=== PATIENT | female | born 1955 | race Caucasian/White ===

== ENCOUNTER 2019-07-26 17:20 | Emergency (ER) | payer MEDICARE, SELFPAY ==
--- NOTE | ~2019-07-26 | XR_ITS ---
EXAMINATION: XR hand RT min 3V EXAM DATE: 07/26/2019 17:43 INDICATION: Initial encounter following injury, with pain of the right hand. TECHNIQUE: Right hand frontal, lateral and oblique projections obtained and reviewed. There is no pr ior study for comparison. FINDINGS: There is acute right fifth metacarpal neck closed posttraumatic fracture. There is overlyin g soft tissue swelling. No other acute findings. IMPRESSION: Right boxer's fracture. Reviewed, dictated and finalized at location A. IMPRESSION: Right boxer's fracture.
[2019-07-26 17:22] VITALS: BP 134/64; PULSE 94; RESP 20; TEMP 36.6; O2SAT 100
--- NOTE | 2019-07-26 18:23 | ED.UPPEXIN ---
HPI - Extremity Injury (Upper) General Chief Complaint: Extremity Injury, Upper Stated Complaint: finger injury Time Seen by Provider: 07/26/19 17:45 Source: patient Mode of arrival: ambulatory Limitations: no limitations History of Present Illness HPI narrative: This is a 64 year old female that presents to the ER for right hand injury sustained just prior to arrival. Reports she tripped and fell forward and caught herself with her hand. Reports pain in the right 5th metacarpal and swelling. Denies hitting her head, loss of consciousness, other injuries, decreased ROM or numbness. Related Data Home Medications Medication Instructions Recorded Confirmed levothyroxine 07/26/19 pravastatin 07/26/19 Allergies Allergy/AdvReac Type Severity Reaction Status Date / Time PROPOXYPHENE HCL Allergy Unknown Uncoded 07/26/19 17:24 Review of Systems Review of Systems: Narrative: CONSTITUTIONAL: Denies fever MUSCULOSKELETAL: Reports joint pain, and myalgia. NEUROLOGIC: Denies numbness All systems reviewed & are unremarkable except as noted in HPI and below PMFSH Past Medical History Medical History (Updated 07/26/19 @ 18:44 by Yelena Soni PA-C) History of hyperlipidemia History of hypothyroidism Social History Social History Gender identity (if verbalized by the patient): Female Exam Narrative: Exam Narrative: GENERAL: Well-appearing, well-nourished, and in no acute distress. HEAD: Normocephalic, atraumatic. EYES: EOMI. EXTREMITIES: Normal range of motion. Mild swelling to the right 5th metacarpal. Normal radial pulses. Normal sensation SKIN: Warm, dry, no rash. NEURO: No focal deficits. Alert and oriented x3. PSYCH: Normal mood and affect Course Consultations Consultation #1: Spoke with Dr. Perez about patient and work-up will follow-up in clinic. Date: 07/26/19 Time: 18:43 Vital Signs Vital signs: Vital Signs Temperature 97.9 F 07/26/19 17: Pulse Rate 94 07/26/19 17:22 Respiratory Rate 20 07/26/19 17:22 Blood Pressure 134/64 07/26/19 17:22 Pulse Oximetry 100 07/26/19 17:22 Temperature 97.9 F 07/26/19 17:22 Pulse Rate 94 07/26/19 17:22 Respiratory Rate 20 05/13/20 17:22 Blood Pressure 134/64 07/26/19 17:22 Pulse Oximetry 100 07/26/19 17:22 Procedures Orthopedic Splinting/Casting Injury #1: Splinting/Casting Date: 07/26/19 Splinting/Casting Time: 18:43 Side: right Upper Extremity Injury Location: hand Upper Extremity Immobilizer: ulnar gutter Splint: customized in ED OCL: ulnar gutter Pre-Procedure Neuro Vascular Exam: normal Post-Procedure Neuro Vascular Exam: normal MDM - Extremity Injury (Upper) MDM Narrative Medical decision making narrative: Patient presents the emergency department for right hand injury today. Right hand x-ray shows a boxer's fracture. Patient placed in an ulnar gutter. Spoke with Dr. Perez about patient and work-up will follow-up in clinic. Patient was given warnings to return to the ER Imaging Data Radiologist's impression: ITS Impressions Hand X-Ray 07/26/19 17:45 IMPRESSION: Right boxer's fracture. Critical Care Time Critical Care Time Critical Care Time: No Discharge Plan Discharge Clinical Impression: Closed fracture of fifth metacarpal bone of right hand Qualifiers: Encounter type: initial encounter Metacarpal location: neck Fracture alignment: nondisplaced Qualified Code(s): S62.366A - Nondisplaced fracture of neck of fifth metacarpal bone, right hand, initial encounter for closed fracture Patient Disposition: Home, Self-Care Condition: Stable Instructions: Boxer Fracture (ED) Additional Instructions: Return to the emergency department if you experience fever, redness and swelling of your arm, numbness, or any other symptoms that are concerning to you Rest. Ice. Pain medication as needed Follow-up with Dr. Perez.
[2019-07-26 19:20] VITALS: BP 146/70; PULSE 78; RESP 20; O2SAT 98
== END 2019-07-26 19:23 | disposition home or self-care (01) ==
PROVIDERS: Emergency Provider Emergency Medicine; PCP Internal Medicine
DX: S62.336A Displaced fracture of neck of fifth metacarpal bone, right hand, initial encounter for closed fracture (principal); E78.5 Hyperlipidemia, unspecified; E03.9 Hypothyroidism, unspecified; W01.0XXA Fall on same level from slipping, tripping and stumbling without subsequent striking against object, initial encounter
CPT/HCPCS: 29125; 73130; 99284; A9270

== ENCOUNTER 2020-12-18 09:51 | Outpatient (CLI) | payer MEDICARE, SELFPAY ==
--- NOTE | ~2020-12-18 | DEXA_ITS ---
Bone Density Report Name: Haritha Ramos Age: 65 Sex: Female Ethnicity: White Date of : 1955 Indication: postmenopausal; parental hip fracture; height loss; prior fracture; Referring Provider: MICHAEL, BRYAN Medrano Study: Bone densitometry was performed. Exam Date: December 18, 2020 Accession number: [id number] Bone Density: Region BMD T-score Z-score Classification AP Spine (L1, L2, L3) 1.030 0.1 2.0 Normal Femoral Neck (Left) 0.765 -0.8 0.9 Normal Total Hip (Left) 0.908 -0.3 1.1 Normal Total Hip Bilateral Avg 0.926 -0.2 1.3 Normal Femoral Neck (Right) 0.843 -0.1 1.6 Normal Total Hip (Right) 0.943 0.0 1.4 Normal World Health Organization criteria for BMD impression classify patients as: Normal (T-score at or above -1.0), Osteopenia (T-score between -1.0 and -2.5), or Osteoporosis (T-score at or below -2.5). 10-year Fracture Risk: FRAX not reported because: All T-scores for Spine Total, Hip Total, Femoral Neck at or above -1.0 Previous Exams: Region Exam Age BMD T-score BMD Change BMD Change Date g/cm2 vs Baseline vs Previous AP Spine(L1, L2, L3) 12/18/2020 65 1.030 0.1 -0.080(-7.2%)# 0.081(8.5%)* 07/26/2018 63 0.949 -0.6 -0.161(-14.5%) -0.088(-8.5%)* 02/20/2014 59 1.036 0.2 -0.074(-6.6%)# 0.005(0.5%)# 01/23/2011 55 1.031 0.1 -0.079(-7.1%)* -0.081(-7.3%)* 09/12/2007 52 1.113 0.9 0.003(0.2%) 0.003(0.2%) 10/08/2003 48 1.110 0.8 Total Hip(Left) 12/18/2020 65 0.908 -0.3 -0.023(-2.5%)# -0.008(-0.9%) 07/26/2018 63 0.916 -0.2 -0.015(-1.6%)# -0.004(-0.5%) 02/20/2014 59 0.920 -0.2 -0.011(-1.1%)# -0.025(-2.7%)# 01/23/2011 55 0.946 0.0 0.015(1.6%) 0.001(0.1%) 09/12/2007 52 0.945 0.0 0.014(1.5%) 0.014(1.5%) 10/08/2003 48 0.931 -0.1 Total Hip(Right) 12/18/2020 65 0.943 0.0 -0.002(-0.2%)# -0.017(-1.8%) 07/26/2018 63 0.960 0.1 0.015(1.6%)# 0.018(1.9%) 02/20/2014 59 0.942 0.0 -0.003(-0.3%)# 0.006(0.7%)# 01/23/2011 55 0.935 -0.1 -0.009(-1.0%) -0.017(-1.8%) 09/12/2007 52 0.953 0.1 0.008(0.9%) 0.008(0.9%) 10/08/2003 48 0.944 0.0 *Denotes significance at 95% confidence level, LSC for AP Spine = 0.022 g/cm2, LSC for Total Hip = 0.027 g/cm2 Clinical Information Provided by Patient: Has had a low trauma fracture Parent has had a hip fracture Has used the following medications: Vitamin D, Calcium Patient maximum height was 64 Menopause Age: 54 Drinks caffe
== END 2020-12-18 09:52 | disposition home or self-care (01) ==
PROVIDERS: PCP Internal Medicine; Visit Provider Internal Medicine
DX: M81.0 Age-related osteoporosis without current pathological fracture (principal)
CPT/HCPCS: 77080

== ENCOUNTER 2021-01-01 08:40 | Outpatient (CLI) | payer MEDICARE, SELFPAY ==
--- NOTE | ~2021-01-01 | MM_ITS ---
EXAMINATION: MM screening [facility] BI w cora HISTORY: Screening mammogram TECHNIQUE: Craniocaudal and mediolateral oblique 3-D tomosynthesis images were obtained and synthetic 2-D images were generated. CAD analysis was submitted and interpreted. COMPARISON: 08/18/2018 diagnostic left mammogram 07/26/2018, 07/14/2017, 03/04/2016 bilateral digital screening mammogram examinations BREAST PARENCHYMAL COMPOSITION: The breasts are almost entirely fatty. FINDINGS: There is no evidence of suspicious mass, calcification, or architectural distortion to sugg est malignancy in either breast. There has been no suspicious interval change. IMPRESSION: 1. No mammographic evidence of malignancy. 2. Recommend routine screening mammography in one year. BI-RADS Category 1: Negative Reviewed, dictated and finalized at location A.
== END 2021-01-01 08:41 | disposition home or self-care (01) ==
LOC: ANHIMG 08:41
PROVIDERS: PCP Internal Medicine; Visit Provider Internal Medicine
DX: Z12.31 Encounter for screening mammogram for malignant neoplasm of breast (principal)
CPT/HCPCS: 77063; 77067

== ENCOUNTER 2022-02-10 08:40 | Outpatient (CLI) | payer MEDICARE, SELFPAY ==
--- NOTE | ~2022-02-10 | MM_ITS ---
EXAMINATION: MM screening [facility] BI w cora HISTORY: Screening mammogram TECHNIQUE: Craniocaudal and mediolateral oblique 3-D tomosynthesis images were obtained and synthetic 2-D images were generated. CAD analysis was submitted and interpreted. COMPARISON: 01/01/2021, 08/18/2018, 07/26/2018 BREAST PARENCHYMAL COMPOSITION: The breasts are almost entirely fatty. FINDINGS: No suspicious mass, calcification, or architectural distortion are identified in either haven ast to suggest malignancy. There has been no suspicious interval change. IMPRESSION: 1. No mammographic evidence of malignancy. 2. Recommend routine screening mammography in one year. BI-RADS Category 1: Negative Reviewed, dictated and finalized at location A. EACH NURSE
== END 2022-02-10 08:41 | disposition home or self-care (01) ==
LOC: ANHIMG 08:41
PROVIDERS: PCP Internal Medicine; Visit Provider Internal Medicine
DX: Z12.31 Encounter for screening mammogram for malignant neoplasm of breast (principal)
CPT/HCPCS: 77063; 77067

== ENCOUNTER 2022-07-13 12:22 | Outpatient (CLI) | payer MEDICARE, SELFPAY ==
--- NOTE | ~2022-07-13 | XR_ITS ---
EXAM: XR hand LT min 3V DATE: 07/13/2022 12:47 HISTORY: CLOSED FRACTURE OF 5TH DIGIT, INJURY X4 DAYS AGO . COMPARISON: None available. FINDINGS: Normal mineralization. Comminuted fracture of the shaft of the left fifth proximal phalang e, with minimal medial angulation and 20 degrees posterior angulation. No lytic or blastic lesion. Mi ld scattered degenerative changes. No erosion or periosteal change. Soft tissues within normal limits . IMPRESSION: Comminuted, angulated diaphyseal fracture of the left fifth proximal phalange. Reviewed, dictated and finalized at location K. IMPRESSION: Comminuted, angulated diaphyseal fracture of the left fifth proxima l phalange.
== END 2022-07-13 12:23 | disposition home or self-care (01) ==
LOC: ANHIMG 12:32
PROVIDERS: PCP Internal Medicine; Visit Provider Plastic Surgery
DX: S62.607A Fracture of unspecified phalanx of left little finger, initial encounter for closed fracture (principal); X58.XXXA Exposure to other specified factors, initial encounter
CPT/HCPCS: 73130

== ENCOUNTER 2022-07-21 13:57 | Outpatient (CLI) | payer MEDICARE, SELFPAY ==
--- NOTE | ~2022-07-21 | XR_ITS ---
EXAM: XR hand LT min 3V DATE: 07/21/2022 14:15 HISTORY: FX OF L 5TH DIGIT, F/U . COMPARISON: None available. FINDINGS: Normal mineralization. Subacute comminuted fractures of the mid left fifth proximal phalan ge, slightly decreased posterior angulation, otherwise unchanged alignment given interval changes in positioning and technique. Hyperemia along the fracture lines. No callus noted. No new acute fracture or dislocation. No lytic or blastic lesion. Joint spaces are maintained. No erosion or periosteal ch robina. Soft tissues within normal limits. IMPRESSION: Early healing changes noted in the left fifth proximal phalange fracture. Reviewed, dictated and finalized at location K. IMPRESSION: Early healing changes noted in the left fifth proximal phalange fra cture.
== END 2022-07-21 13:58 | disposition home or self-care (01) ==
PROVIDERS: PCP Internal Medicine; Visit Provider Plastic Surgery
DX: S62.607A Fracture of unspecified phalanx of left little finger, initial encounter for closed fracture (principal); X58.XXXA Exposure to other specified factors, initial encounter
CPT/HCPCS: 73130

== ENCOUNTER 2023-06-28 14:51 | Outpatient (CLI) | payer MEDICARE, SELFPAY ==
--- NOTE | ~2023-06-28 | MM_ITS ---
EXAMINATION: MM screening [facility] BI w cora HISTORY: Screening TECHNIQUE: Craniocaudal and mediolateral oblique 3-D tomosynthesis images were obtained and synthetic 2-D images were generated. CAD analysis was submitted and interpreted. COMPARISON: Comparison to multiple prior studies sequentially, with oldest reviewed study dated 12/14. BREAST PARENCHYMAL COMPOSITION: Not Dense: Breast are almost entirely fatty. FINDINGS: There is no evidence of suspicious mass, calcification, or architectural distortion to sugg est malignancy in either breast. There has been no suspicious interval change. IMPRESSION: 1. No mammographic evidence of malignancy. 2. Recommend routine screening mammography in one year. BI-RADS Category 1: Negative Reviewed, dictated and finalized at location B.
== END 2023-06-28 14:52 | disposition home or self-care (01) ==
LOC: ANHIMG 14:54
PROVIDERS: PCP Internal Medicine; Visit Provider Internal Medicine
DX: Z12.31 Encounter for screening mammogram for malignant neoplasm of breast (principal)
CPT/HCPCS: 77063; 77067

== ENCOUNTER 2024-05-24 13:49 | Outpatient (CLI) | payer MEDICARE, SELFPAY ==
--- NOTE | ~2024-05-24 | DEXA_ITS ---
Bone Density Report Name: ANGELIA ROSS Age: 69 Sex: Female Ethnicity: White Date of : 1955 Indication: postmenopausal; screening for osteoporosis; parental hip fracture; height loss; prior fracture; Referring Provider: LEA*, BRYAN Medrano Study: Bone densitometry was performed. Exam Date: May 24, 2024 Accession number: [id number] Bone Density: Region BMD T-score Z-score Classification AP Spine(L1-L4) 1.076 0.3 2.4 Normal Femoral Neck (Left) 0.886 0.3 2.2 Normal Total Hip (Left) 0.971 0.2 1.8 Normal Femoral Neck (Right) 0.823 -0.2 1.6 Normal Total Hip (Right) 0.960 0.1 1.7 Normal Total Hip Mean 0.966 0.2 1.8 Normal World Health Organization criteria for BMD impression classify patients as: Normal (T-score at or above -1.0), Osteopenia (T-score between -1.0 and -2.5), or Osteoporosis (T-score at or below -2.5). 10-year Fracture Risk: FRAX not reported because: All T-scores for Spine Total, Hip Total, Femoral Neck at or above -1.0 Previous Exams: Region Exam Age BMD T-score BMD Change BMD Change Date g/cm2 vs Baseline vs Previous Total Hip(Left) 05/24/2024 69 0.971 0.2 0.055 (6.0%)* 0.063 (7.0%)* 12/18/2020 65 0.908 -0.3 -0.008 (-0.9%) -0.008 (-0.9%) 07/26/2018 63 0.916 -0.2 Total Hip(Right) 05/24/2024 69 0.960 0.1 0.000 (0.0%) 0.017 (1.9%) 12/18/2020 65 0.943 0.0 -0.017 (-1.8%) -0.017 (-1.8%) 07/26/2018 63 0.960 0.1 *Denotes significance at 95% confidence level, LSC for Total Hip = 0.027 g/cm2 Clinical Information Provided by Patient: Has had a low trauma fracture Parent has had a hip fracture Has used the following medications: Vitamin D, Calcium Patient maximum height was 64 Menopause Age: 54 No regular weight bearing exercise Does not regularly consume dairy products Drinks caffeinated beverages Onset of menses at age 11 Number of children 0 Impression: The patient has normal bone mass. The patient has risk factors, including: parental hip fracture, previous fracture. No significant bone loss was observed. Discussion: BONE DENSITY IS ABOVE THE MINIMUM DESIRABLE LEVEL AT ALL SKELETAL SITES TESTED. This patient?s bone mineral density is above the minimum desirable level (T-score -1.0 or better) at all sites measured. The patient should follow a healthful lifestyle (good nutrition with adequate calcium and vitamin D, and appropriate weight-bearing exercise). Follow-Up: Consider repeating this study in 5 years or sooner if there is some new clinical indication. Reported by: JOHN on 05/24/2024 2:26:00 PM. Reviewed, dictated and finalized at location ARosaura [facility]ENTER[facility]ie
--- OUTSIDE RECORDS SUMMARY | 2024-05-24 15:38 | XMS_ITS | Clinical Summary ---
Author Organization [facility] Address [address] [facility], [place] [address] Phone Care Team Providers Care Well Servicing Rig Operator Name Role Phone Santos Thurman MD Primary Care Provider [phone] Maria T Michel APRN, CALL CENTER REPRESENTATIVE Unavailable Allergies No known active allergies Medications LEVOTHYROXINE SODIUM PO Take 100 mcg by mouth. Active pravastatin (PRAVACHOL) 40 MG Tablet Take 40 mg by mouth daily. Active Multiple Vitamin (MULTI-VITAMIN PO) Take by mouth. Activ e Calcium Carb-Cholecalci ferol (CALCIUM + D3) 600-200 MG-UNIT Tablet Take by mouth. Active Cholecalciferol (VITAMIN D3) 2000 UNIT Capsule Take by mouth. Activ e [place]-3 Fatty Acids (OMEGA 3 PO) Take 500 mg by mouth. Active BIOTIN FORTE PO Take 5,000 mg by mouth. Active Cranberry-Vitam in C-Vitamin E 4200-20-3 MG-MG-UNIT Capsule Take by mouth. Activ e albuterol (ProAir HFA) 108 (90 Base) MCG/ACT Aerosol Solution take 2 Puffs by inhalation every 4 hours as needed for Wheezing. 1 Inhaler 5 0 Active Additional Information Patient not taking.Reported on 10/27/2023 rosuvastatin (CRESTOR) 5 MG Tablet Take 5 mg by mouth daily. Unknown dosage Active Active Problems Problem Noted Date Diagnosed Date Non morbid obesity 12/27/2017 CHUCK on CPAP 11/21/2015 Acquired hypothyroidism 11/21/2015 Immunizations Immunization Administration Dates Next Due Covid-19, Mrna, Lnp-s, PF, 1 00 mcg/0.5 mL Dose (Moderna) 05/21/2020,04/23/2020 Pneumococcal Vaccine - 13 Valent 06/10/2018 Pneumococcal Vaccine Adult - 23 Valent 0 Family History Medical History Relation Name Comments Congestive Heart Failure Father Diabetes Father No Known Problems Maternal Grandfather No Known Problems Maternal Grandmother Osteoporosis Mother No Known Problems Paternal Grandfather No Known Problems Paternal Grandmother Diabetes Sister Relation Name Status Comments Father Maternal Grandfather Maternal Grandmother Mother Alive Paternal Grandfather Paternal Grandmother Sister Alive Social History Tobacco Use Types Packs/Day Years Used Date Smoking Tobacco: Never Smokeless Tobacco: Never Tobacco Cessation:Counseling Given: Not Answered Alcohol Use Standard Drinks/Week Comments No 0 (1 standard drink = 0.6 oz pur e alcohol) Sexually Active Control Partners Comments Not Currently Comments No Sex and Gender Information Value Date Recorded Sex Assigned at Not on file Legal Sex Female 1:19 PM CDT Gender Identity Not on file Sexual Orientation Not on file Last Filed Vital Signs Vital Sign Reading Time Taken Comments Blood Pressure 130/64 10/27/2023 11:23 AM CDT Pulse 79 10/27/2023 11:23 AM CDT Temperature 36 C (96.8 F) 10/27/2023 11:23 AM CDT Respiratory Rate 16 10/27/2023 11:23 AM CDT Oxygen Saturation 96% 10/27/2023 11:23 AM CDT Inhaled Oxygen Concentration - - Weight 90.7 kg (200 lb) 10/27/2023 11:23 AM CDT Height 160 cm (5' 3 ) 10/27/2023 11:23 AM CDT Body Mass Index 35.43 10/27/2023 11:23 AM CDT Plan of Treatment Upcoming Encounters Date Type Department Care Team (Late st Contact Info) Description 10/25/2024 10:00 AM CDT Office Visit [facility] [place] [address] [facility] [address] [place] [address] Maria T Michel, WAITER WAITRESS, CALL CENTER REPRESENTATIVE [address] [facility] [address] [place] [address] Health Maintenance Due Date Last Done Comments DEXA Bone Density 1955 Hepatitis C Virus (HCV) Screening 1955 Mammogram 1955 TdaP Immunization 1955 Colonoscopy 1998 Colorectal Cancer Screening 1998 Cologuard 2003 Immunochemical Fecal Occult Blood 2003 Zoster Immunization (1 of 2) 2003 Respiratory Syncytial Virus (RSV) Immunization (Adult) (1 - Risk 60-74 years 1-dose series) 2013 Influenza Immunization (#1) 2023 11/0 09/2022, 12/19/2021, 12/20/2020 SARS-COV-2 Immunization (2023- season) 2023 01/21/2023, 03/03/2022, 09/16/2021, Additional history exists Pneumococcal Immunization (50+ years) Completed 10/27/2019, 06/10/2018 Pneumococcal Immunization Combined Discontinued 10/27/2019, 06/10/2018 Hepatitis B Immunization Aged Out No longer eligible based on patient's age to complete this topic Meningococcal Immunization (ACWY) Aged Out No longer eligible based on patient's age to complete this topic Rotavirus Immunization Aged Out No lo nger eligible based on patient's age to complete this topic Insurance MEDICARE C AETNA Care Teams Well Servicing Rig Operator Relationship Specialty Start Date End Date Santos Thurman MD [address] [facility] [address] [place] [address] PCP - General Internal Medicine 08/16/15 Maria T Michel APRN, CALL CENTER REPRESENTATIVE #[address] [address] Nurse Practitioner Advanced Practice Nurse 08/26/22
--- OUTSIDE RECORDS SUMMARY | 2024-05-24 15:38 | XMS_ITS | Continuity of Care Document ---
Author Organization [facility] Address [address] [place] [address] Phone Care Team Providers Care Line Runner Name Role Phone [facility] Unavailable [...] Diagnoses Date Provider Providers Copied on Encounter [facility], [address] [place] [address] [address], [place], [place], [id number], [place] tel:[phone] SEC [facility] No Information 0 [facility] . [address] [facility], [facility] [address], [place], [address], [place]. tel:[phone] Referring Provider: Simone Webster, [address] [place] [address] [address], [place], [address]. tel:[phone] sulting Provider: Marco Finney, [address] [place] [address], [place], [address]. tel:[phone] [facility], [address], [place], [place], [address], [place] tel:[phone] SEC [facility] No Information Dec-2 9-200 9 [place] OD Simone. [address] [facility] , [address], [place], [address], [place]. tel:[phone] [facility], [address], [place], [place], [id number], tel:[phone] SEC [facility] No Information Dec-2 4-200 8 [place] OD Simone. [address] [facility] , [address], [place], [place], [facility], [place]. tel:[phone] [facility], [address], [place], [place], [address], tel:[phone] SEC [facility] No Information Feb-1 9-200 7 [place] OD Simone. [facility] [facility] , [address], [place], [address], [place]. tel:[phone] Family History Family Member Type Diagnosis Age At Onset No Information Payers Payer name Insurance type Covered libertarian ID Authoriza tion(s) No Information Social History [...]
== END 2024-05-24 13:50 | disposition home or self-care (01) ==
LOC: ANHIMG 13:53
PROVIDERS: PCP Internal Medicine; Visit Provider Internal Medicine
DX: M81.0 Age-related osteoporosis without current pathological fracture (principal)
CPT/HCPCS: 77080

== ENCOUNTER 2024-06-02 15:37 | Outpatient (CLI) | payer MEDICARE, SELFPAY ==
--- NOTE | ~2024-06-02 | XR_ITS ---
HISTORY: Pain in thoracic spine COMPARISON: None TECHNIQUE: 3 views of the thoracic spine were performed FINDINGS: No acute compression fracture is present. Bone mineralization is age-appropriate. No significant degenerative disease. IMPRESSION: Unremarkable radiographic evaluation of the thoracic spine, as detailed above. Reviewed, dictated and finalized at location A. IMPRESSION: Unremarkable radiographic evaluation of the thoracic spine, as det moncho above.
--- OUTSIDE RECORDS SUMMARY | 2024-06-02 15:42 | XMS_ITS | Clinical Summary ---
Author Organization [facility] Address [address] [facility] [place] [address] Phone Care Team Providers Care Electrician Crane Maintenance Name Role Phone Santos Thurman MD Primary Care Provider [phone] Maria T Michel APRN, CHIEF MEDICAL PHYSICIST Unavailable Allergies No known active allergies Medications LEVOTHYROXINE SODIUM PO Take 100 mcg by mouth. Active pravastatin (PRAVACHOL) 40 MG Tablet Take 40 mg by mouth daily. Active Multiple Vitamin (MULTI-VITAMIN PO) Take by mouth. Activ e Calcium Carb-Cholecalci ferol (CALCIUM + D3) 600-200 MG-UNIT Tablet Take by mouth. Active Cholecalciferol (VITAMIN D3) 2000 UNIT Capsule Take by mouth. Activ e [place]-3 Fatty Acids (OMEGA 3 PO) Take 500 [...] Visit [facility] - [place] [address] [facility] [address] [place] [address] Maria T Michel, CABLE TESTERS HELPER, CHIEF MEDICAL PHYSICIST [address] [facility] [address] [place] [address] Health Maintenance Due Date Last Done Comments [...] topic Insurance MEDICARE C [employer] Care Teams Electrician Crane Maintenance Relationship Specialty Start Date End Date Santos Thurman MD [address] [facility] [address] [place] [id number] PCP - General Internal Medicine 08/16/15 Maria T Michel APRN, CHIEF MEDICAL PHYSICIST [address] [address] Nurse Practitioner Advanced Practice Nurse 08/26/22
--- OUTSIDE RECORDS SUMMARY | 2024-06-02 15:42 | XMS_ITS | Data Portability ---
Author Organization [facility] [employer], Main Office Address [address] [place] [address] Assessment No assessment recorded. Plan of Treatment Reminders Order Date Submit Date Provider Last Modified By Organization Details Last Modified Time Details Appointments None recorded. Lab vitamin D, 25-hydrox y, total, serum 025 [facility], [address] [place], [address], 5 04:15:41 lipid panel, serum 025 [facility], [address] [place], [address], 5 04:15:40 CMP, serum or plasma 025 [facility], [address] [place], [address], 5 04:15:40 TSH, serum or plasma 025 [facility], [address] [place], [address], 5 04:15:40 T4, free, serum 025 [facility], [address] [place], [address], 5 04:15:40 CBC w/ auto diff 025 [facility], [address] [place], [address], 5 04:15:41 lipid panel, serum 024 [facility], [address] [place], [address], 4 19:22:15 CMP, serum or plasma 024 [facility], [address] [place], [address], 4 19:22:15 TSH, serum or plasma 024 [facility], [address] [place], [address], 4 19:22:17 T4, free, serum 024 [facility], [address] [place], [address], 4 19:22:17 CBC w/ auto diff 024 [facility], [address] [place], [address], 4 19:22:16 vitamin D, 25-hydrox y, total, serum 024 [facility], [address] [place], [address], 4 08:23:44 lipid panel, serum 024 [facility], [address] [place], [address], 4 08:23:39 CMP, serum or plasma 024 [facility], [address] [place], [address], 4 08:23:40 TSH, serum or plasma 024 024 [facility], [address] [place], [address], 4 08:23:43 T4, free, serum 024 024 [facility], [address] [place], [address], 4 08:23:42 CBC w/ auto diff 024 024 [facility], [address] [place], [address], 4 08:23:41 lipid panel, serum 023 023 [email or web address] [facility], [address] [place], [address], 3 09:56:39 CMP, serum or plasma 023 023 [id number] [facility], [address] [place], [address], 3 09:56:39 TSH, serum or plasma 023 023 [facility], [address] [place], [address], 3 09:56:38 T4, free, serum 023 023 [email or web address] [facility], [address] [place], [address], 3 09:56:39 vitamin D, 25-hydrox y, total, serum 023 023 [email or web address] [facility], [address] [place], [address], 3 11:05:29 lipid panel, serum 023 023 [id number] [facility], [address] [place], [address], 3 11:05:28 CMP, serum or plasma 023 023 [email or web address] [facility], [address] [place] [address], [address], 3 11:05:29 CBC 023 023 [email or web address] [facility], [address] [place], [address], 3 11:05:29 TSH, serum or plasma 023 023 [email or web address] [facility], [address] [place] [address], [address], 3 11:05:29 T4, free, serum 023 023 [facility], [address] [place] [address], [address], 3 11:05:29 Referral None recorded. Procedures None recorded. Surgeries None recorded. Imaging None recorded. Medication Orders None recorded. Patient TargetsNo targets recorded. Patient Instructions Encounter Date Encounter Id Patient Instructions Last Modified By Organization Details Last Modified Time 05/22/2022 [id number] Follow-up hyperlipidemia-hypo thyroidism - sleep apnea -obesity clinically stable. Will check blood work in the form of CBC, CMP, lipid, thyroid and vitamin-D level. Continue on current Rx follow-up in six months [email or web address] Not available 05/22/2022 10:54:44 11/20/2022 [id number] Follow-up hyperlipidemia-hypo thyroidism -sleep apnea -obesity class two. Clinically stable. Most recent blood work performed in May showed a cholesterol 166 HDL of 53 LDL of 92. Thyroid, blood sugar and liver enzymes all within normal limits. Overall is doing well. Will continue on current Rx check a lipid and thyroid and CMP panel. Continue on current Rx follow-up in six months. Portions of the record may have been created with voice recognition software. Occasional wrong-word or elfto-g-sjja substitutions may have occurred due to the inherent limitations of voice recognition software. Read the chart carefully and recognize, using context, where substitutions have occurred. Next Appt: 6 Months Approximate Date: 05/19/2023 [email or web address] Not available 11/20/2022 11:22:58 05/21/2023 [id number] Follow-up hyperlipidemia, hypothyroidism, sleep apnea and obesity all clinically stable. Will continue on current Rx check blood work consisting of CBC, CMP, lipid, thyroid and vitamin-D level. Continue on current Rx will be due for a colonoscopy or Cologuard test later in the year. FDA recommendations of a influenza, RSV, COVID, pneumococcal immunizations strongly advised. Portions of the record may have been created with voice recognition software. Occasional wrong-word or uupcj-c-slnu substitutions may have occurred due to the inherent limitations of voice recognition software. Read the chart carefully and recognize, using context, where substitutions have occurred. [email or web address] Not available 05/21/2023 11:46:34 11/25/2023 [id number] Follow up cholesterol, hypothyroidism, sleep apnea and obesity all clinically stable. Check blood work and follow up in six months. Additional Orders - Directives - Recommendations 1. DEXA Scan Keep Appointment: Jossie 05 25 2024 09:40 AM Amanda Portions of the record may have been created with voice recognition software. Occasional wrong-word or ujgdy-c-lsqz substitutions may have occurred due to the inherent limitations of voice recognition software. Read the chart carefully and recognize, using context, where substitutions have occurred. [email or web address] Not available 11/25/2023 14:19:08 05/25/2024 [id number] Follow-up hyperlipidemia, hypothyroidism, sleep apnea, thoracic back pain and obesity. Check blood work consisting of CBC, CMP, lipid, thyroid, vitamin-D level. Will get radiographic studies of the thoracic spine. Treat the back pain symptomatically with heat ice and anti-inflammatories . No improvement may need an MRI or further evaluation. Follow-up six months Additional Orders - Directives - Recommendations 1. x-ray thoracic spine for thoracic back pain Follow Up: 6 Months Approximate Date: 11/21/2024 Portions of record are template driven. When necessary additional context will be provided. Additionally some portions have been created with voice recognition software. Occasional wrong-word or [id number]-j-[id number] substitutions may have occurred due to the inherent limitations of voice recognition software. Read the chart carefully and recognize, using context, where substitutions may have occurred. Created: Santos Thurman M.D. 05.25.2024 10:13 AM [email or web address] Not available 05/25/2024 11:13:57 Reason for Referral None Reported. Results Created Date Observation Date Name Description Value Unit Range Abnormal Flag Note LastModifiedBy Organization Detail LastModifiedTime 06/10/1906/10/2022 LIPID PANEL , STAND CHASIDY cholesterol, total 166 mg/dL <200 normal Not Available [address], [address], 06/10/2022 07:29:55 06/10/1906/10/2022 LIPID PANEL , STAND CHASIDY HDL cholesterol 53 mg/dL > or = 50 normal Not Available [address], [address], 06/10/2022 07:29:55 06/10/1906/10/2022 LIPID PANEL , STAND CHASIDY triglyceride s 110 mg/dL <150 normal Not Available [address], [address], 06/10/2022 07:29:55 06/10/1906/10/2022 LIPID PANEL , STAND CHASIDY LDL-choleste rol 92 mg/dL _(tru c) normal Refer ence range : <100 Ashely able range <100 mg/dL for prima ry preve ntion ; <70 mg/dL for patie nts with CHD or diabe tic patie nts with > or = 2 CHD risk facto rs. LDL-C is now calcu lated using the Paola n-Hop kins shilpiu jaron n, which is a valid ated novel maryjaneo d flaco matson accur acy than the Fried malou equat ion in the estim ation of LDL-C . Paola alvarado SS et al. JACLYN. 2013; 310(1 9): 2061- 2068 (http ://ed ucati on.Qu estDi agnos Son[employer]. com/f aq/FA Q164) Not Available [address], [address], 06/10/2022 07:29:55 06/10/19 23 06/10/2022 LIPID PANEL , STAND CHASIDY chol/HDLC ratio 3.1 (calc ) <5.0 normal Not Available [address], [address], 06/10/2022 07:29:55 06/10/19 23 06/10/2022 LIPID PANEL , STAND CHASIDY non HDL cholesterol 113 mg/dL _(tru c) <130 normal For patie nts with diabe eddie plus 1 major ASCVD risk facto r, treat ing to a non-H DL-C goal of <100 mg/dL (LDL- C of <70 mg/dL ) is consi baldemard a marvina samantha c optio n. Not Available [address], [place], [address], 06/10/2022 07:29:55 06/10/19 23 06/10/2022 COMPR EHENS RICKY METAB OLIC PANEL glucose 85 mg/dL 65-99 normal Fasti ng refer ence inter janine Not Available [address], [address], 06/10/2022 07:29:56 06/10/19 23 06/10/2022 COMPR EHENS RICKY METAB OLIC PANEL urea nitrogen (BUN) 13 mg/dL 7-25 normal Not Available [address], [address], 06/10/2022 07:29:56 06/10/19 23 06/10/2022 COMPR EHENS RICKY METAB OLIC PANEL creatinine 1.02 mg/dL 0.50-1 .05 normal Not Available [address], [address], 06/10/2022 07:29:56 06/10/19 23 06/10/2022 COMPR EHENS RICKY METAB OLIC PANEL eGFR 60 mL/mi n/1.7 3m2 > or = 60 normal The eGFR is based on the CKD-E PI 2020 equat ion. To calcu late the new eGFR from a previ ous Creat inine or Cysta tin C resul t, go to https ://shannon lopez.norma jackson/maik soaresal s/ kdoqi /gfr% 5Fcal culat or Not Available [address] [address] [place], [address], 06/10/2022 07:29:56 06/10/19 23 06/10/2022 COMPR EHENS RICKY METAB OLIC PANEL BUN/creatini ne ratio NOT APPLIC ABLE (calc ) 6-22 Not Available [address], [address], 06/10/2022 07:29:56 06/10/19 23 06/10/2022 COMPR EHENS RICKY METAB OLIC PANEL sodium 135 mmol/ L 135-14 6 normal Not Available [address], [address], 06/10/2022 07:29:56 06/10/19 23 06/10/2022 COMPR EHENS RICKY METAB OLIC PANEL potassium 4.1 mmol/ L 3.5-5. 3 normal Not Available [address], [address], 06/10/2022 07:29:56 06/10/19 23 06/10/2022 COMPR EHENS RICKY METAB OLIC PANEL chloride 100 mmol/ L 98-110 normal Not Available [address], [address], 06/10/2022 07:29:56 06/10/19 23 06/10/2022 COMPR EHENS RICKY METAB OLIC PANEL carbon dioxide 26 mmol/ L 20-32 normal Not Available [address], [address], 06/10/2022 07:29:56 06/10/19 23 06/10/2022 COMPR EHENS RICKY METAB OLIC PANEL calcium 9.9 mg/dL 8.6-10 .4 normal Not Available [address], [address], 06/10/2022 07:29:56 06/10/19 23 06/10/2022 COMPR EHENS RICKY METAB OLIC PANEL protein, total 7.6 g/dL 6.1-8. 1 normal Not Available [address], [address], 06/10/2022 07:29:56 06/10/19 23 06/10/2022 COMPR EHENS RICKY METAB OLIC PANEL albumin 4.3 g/dL 3.6-5. 1 normal Not Available [address], [address], 06/10/2022 07:29:56 06/10/19 23 06/10/2022 COMPR EHENS RICKY METAB OLIC PANEL globulin 3.3 g/dL_ (calc ) 1.9-3. 7 normal Not Available [address], [address], 06/10/2022 07:29:56 06/10/19 23 06/10/2022 COMPR EHENS RICKY METAB OLIC PANEL albumin/glob ulin ratio 1.3 (calc ) 1.0-2. 5 normal Not Available [address], [address], 06/10/2022 07:29:56 06/10/19 23 06/10/2022 COMPR EHENS RICKY METAB OLIC PANEL bilirubin, total 0.7 mg/dL 0.2-1. 2 normal Not Available [address], [address], 06/10/2022 07:29:56 06/10/19 23 06/10/2022 COMPR EHENS RICKY METAB OLIC PANEL alkaline phosphatase 93 U/L 37-153 normal Not Available [address], [address], 06/10/2022 07:29:56 06/10/19 23 06/10/2022 COMPR EHENS RICKY METAB OLIC PANEL AST 25 U/L 10-35 normal Not Available [address], [address], 06/10/2022 07:29:56 06/10/19 23 06/10/2022 COMPR EHENS RICKY METAB OLIC PANEL ALT 15 U/L 6-29 normal Not Available [address], [address], 06/10/2022 07:29:56 06/10/19 23 06/10/2022 CBC (H/H, RBC, INDIC ES, WBC, PLT) white blood cell count 7.3 thous and/u L 3.8-10 .8 normal Not Available [address], [address], 06/10/2022 07:29:56 06/10/19 23 06/10/2022 CBC (H/H, RBC, INDIC ES, WBC, PLT) red blood cell count 4.89 lou on/uL 3.80-5 .10 normal Not Available [address], [address], 06/10/2022 07:29:56 06/10/1906/10/2022 CBC (H/H, RBC, INDIC ES, WBC, PLT) hemoglobin 14.1 g/dL 11.7-1 5.5 normal Not Available [address], [address], 06/10/2022 07:29:56 06/10/19 23 06/10/2022 CBC (H/H, RBC, INDIC ES, WBC, PLT) hematocrit 43.5 % 35.0-4 5.0 normal Not Available [address], [address], 06/10/2022 07:29:56 06/10/19 23 06/10/2022 CBC (H/H, RBC, INDIC ES, WBC, PLT) MCV 89.0 fL 80.0-1 00.0 normal Not Available [address], [address], 06/10/2022 07:29:56 06/10/1906/10/2022 CBC (H/H, RBC, INDIC ES, WBC, PLT) MCH 28.8 pg 27.0-3 3.0 normal Not Available [address], [address], 06/10/2022 07:29:56 06/10/1906/10/2022 CBC (H/H, RBC, INDIC ES, WBC, PLT) MCHC 32.4 g/dL 32.0-3 6.0 normal Not Available [address], [address], 06/10/2022 07:29:56 06/10/19 23 06/10/2022 CBC (H/H, RBC, INDIC ES, WBC, PLT) RDW 12.4 % 11.0-1 5.0 normal Not Available [address], [address], 06/10/2022 07:29:56 06/10/1906/10/2022 CBC (H/H, RBC, INDIC ES, WBC, PLT) platelet count 251 thous and/u L 140-40 0 normal Not Available [address], [address], 06/10/2022 07:29:56 06/10/19 23 06/10/2022 CBC (H/H, RBC, INDIC ES, WBC, PLT) MPV 13.0 fL 7.5-12 .5 high Not Available [address], [address], 06/10/2022 07:29:56 06/10/1906/10/2022 T4, FREE T4, free 1.5 NG/dL 0.8-1. 8 normal Not Available [address], [address], 06/10/2022 07:29:57 06/10/1906/10/2022 TSH TSH 0.30 mIU/L 0.40-4 .50 low Not Available [address], [address], 06/10/2022 07:29:58 06/10/1906/10/2022 VITAM IN D,25- OH,TO YOU,I A vitamin D,25-oh,tota l,ia 51 NG/mL 30-100 normal Vitam in D Statu s 25-OH Vitam in D: Defic iency : <20 ng/mL Insuf ficie ncy: 20 - 29 ng/mL Optim al: > or = 30 ng/mL For 25-OH Vitam in D testi ng on patie nts on D2-solano pplem entat ion and patie nts for whom quant itati on of D2 and D3 fract ions is requi red, the [facility] eD(TM ) 25-OH VIT D, (D2,D 3), LC/MS /MS is recom jaret d: order code 19849 (alex ents >2yrs ). See Note 1 Note 1 For addit ional infor carly coppola refer to http: //angus Herron stDia gnost ics.c om/fa q/FAQ 199 (This link is being provi ded for infor benja king/ hannah loredo purpo ses only. ) Not Available [address] [place], [address], 06/10/2022 07:29:58 12/24/1912/24/2022 LIPID PANEL , STAND CHASIDY cholesterol, total 208 mg/dL <200 high Not Available [address] [address] [place], [address], 12/24/2022 02:06:34 12/24/1912/24/2022 LIPID PANEL , STAND CHASIDY HDL cholesterol 62 mg/dL > or = 50 normal Not Available [facility] [address] [address] [place], [address], 12/24/2022 02:06:34 12/24/1912/24/2022 LIPID PANEL , STAND CHASIDY triglyceride s 107 mg/dL <150 normal Not Available [address], [address], 12/24/2022 02:06:34 12/24/1912/24/2022 LIPID PANEL , STAND CHASIDY LDL-choleste rol 125 mg/dL _(tru c) high Refer ence range : <100 Ashely able range <100 mg/dL for prima ry preve ntion ; <70 mg/dL for patie nts with CHD or diabe tic patie nts with > or = 2 CHD risk facto rs. LDL-C is now calcu lated using the Paola alvarado-Hop kins shilpiu jaron n, which is a valid ated novel maryjaneo jarvis matson accur acy than the Fried malou equat ion in the estim ation of LDL-C . Paola alvarado SS et al. JACLYN. 2013; 310(1 9): 2061- 2068 (http ://ed ucati on.Qu Raysa hurtDNS:Nets. com/f aq/FA Q164) Not Available [facility] [address] [address] [place], [address], 12/24/2022 02:06:34 12/24/1912/24/2022 LIPID PANEL , STAND CHASIDY chol/HDLC ratio 3.4 (calc ) <5.0 normal Not Available [address] [address] [place], [address], 12/24/2022 02:06:34 12/24/1912/24/2022 LIPID PANEL , STAND CHASIDY non HDL cholesterol 146 mg/dL _(tru c) <130 high For patie nts with diabe eddie plus 1 major ASCVD risk facto r, treat ing to a non-H DL-C goal of <100 mg/dL (LDL- C of <70 mg/dL ) is consi dered a thera peuti c optio n. Not Available [address] [address] [place], [address], 12/24/2022 02:06:34 12/24/1912/24/2022 COMPR EHENS RICKY METAB OLIC PANEL glucose 88 mg/dL 65-99 normal Fasti ng refer ence inter janine Not Available [address] [address] [place], [address], 12/24/2022 02:06:35 12/24/19 23 12/24/2022 COMPR EHENS RICKY METAB OLIC PANEL urea nitrogen (BUN) 17 mg/dL 7-25 normal Not Available [address] [address] [place], [address], 12/24/2022 02:06:35 12/24/19 23 12/24/2022 COMPR EHENS RICKY METAB OLIC PANEL creatinine 0.96 mg/dL 0.50-1 .05 normal Not Available [address] [address] [place], [address], 12/24/2022 02:06:35 12/24/19 23 12/24/2022 COMPR EHENS RICKY METAB OLIC PANEL eGFR 64 mL/mi n/1.7 3m2 > or = 60 normal Not Available [facility] [address] [address] [place], [address], 12/24/2022 02:06:35 10/11/20 23 12/24/2022 COMPR EHENS RICKY METAB OLIC PANEL BUN/creatini ne ratio SEE NOTE: (calc ) 6-22 Not Repor mari: BUN and Creat inine are withi n refer ence range . Not Available [address] [place], [address], 12/24/2022 02:06:35 12/24/19 23 12/24/2022 COMPR EHENS RICKY METAB OLIC PANEL sodium 136 mmol/ L 135-14 6 normal Not Available [address] [address] [place], [address], 12/24/2022 02:06:35 12/24/19 23 12/24/2022 COMPR EHENS RICKY METAB OLIC PANEL potassium 4.4 mmol/ L 3.5-5. 3 normal Not Available [address], [address], 12/24/2022 02:06:35 12/24/19 23 12/24/2022 COMPR EHENS RICKY METAB OLIC PANEL chloride 102 mmol/ L 98-110 normal Not Available [address], [address], 12/24/2022 02:06:35 12/24/19 23 12/24/2022 COMPR EHENS RICKY METAB OLIC PANEL carbon dioxide 27 mmol/ L 20-32 normal Not Available [address], [address], 12/24/2022 02:06:35 12/24/19 23 12/24/2022 COMPR EHENS RICKY METAB OLIC PANEL calcium 9.7 mg/dL 8.6-10 .4 normal Not Available [address], [address], 12/24/2022 02:06:35 12/24/19 23 12/24/2022 COMPR EHENS RICKY METAB OLIC PANEL protein, total 7.5 g/dL 6.1-8. 1 normal Not Available [address], [address], 12/24/2022 02:06:35 12/24/19 23 12/24/2022 COMPR EHENS RICKY METAB OLIC PANEL albumin 4.2 g/dL 3.6-5. 1 normal Not Available [address], [address], 12/24/2022 02:06:35 12/24/19 23 12/24/2022 COMPR EHENS RICKY METAB OLIC PANEL globulin 3.3 g/dL_ (calc ) 1.9-3. 7 normal Not Available [address], [address], 12/24/2022 02:06:35 12/24/19 23 12/24/2022 COMPR EHENS RICKY METAB OLIC PANEL albumin/glob ulin ratio 1.3 (calc ) 1.0-2. 5 normal Not Available [address], [address], 12/24/2022 02:06:35 12/24/19 23 12/24/2022 COMPR EHENS RICKY METAB OLIC PANEL bilirubin, total 0.5 mg/dL 0.2-1. 2 normal Not Available [address], [address], 12/24/2022 02:06:35 12/24/19 23 12/24/2022 COMPR EHENS RICKY METAB OLIC PANEL alkaline phosphatase 90 U/L 37-153 normal Not Available [facility] [address], [address], 12/24/2022 02:06:35 12/24/19 23 12/24/2022 COMPR EHENS RICKY METAB OLIC PANEL AST 21 U/L 10-35 normal Not Available [address], [address], 12/24/2022 02:06:35 12/24/19 23 12/24/2022 COMPR EHENS RICKY METAB OLIC PANEL ALT 15 U/L 6-29 normal Not Available [address], [address], 12/24/2022 02:06:35 12/24/19 23 12/24/2022 T4, FREE T4, free 1.2 NG/dL 0.8-1. 8 normal Not Available [address], [address], 12/24/2022 02:06:36 12/24/1912/24/2022 TSH TSH 0.24 mIU/L 0.40-4 .50 low Not Available [address], [address], 12/24/2022 02:06:37 05/24/19 24 05/25/2023 LIPID PANEL , STAND CHASIDY cholesterol, total 164 mg/dL <200 normal Not Available [address], [address], 05/25/2023 08:23:39 05/24/19 24 05/25/2023 LIPID PANEL , STAND CHASIDY HDL cholesterol 65 mg/dL > or = 50 normal Not Available [address], [address], 05/25/2023 08:23:39 05/24/19 24 05/25/2023 LIPID PANEL , STAND CHASIDY triglyceride s 77 mg/dL <150 normal Not Available [address], [address], 05/25/2023 08:23:39 05/24/19 24 05/25/2023 LIPID PANEL , STAND CHASIDY LDL-choleste rol 83 mg/dL _(tru c) normal Refer ence range : <100 Ashely able range <100 mg/dL for prima ry preve ntion ; <70 mg/dL for patie nts with CHD or diabe tic patie nts with > or = 2 CHD risk facto rs. LDL-C is now calcu lated using the [facility]-Hop kins calcu jaron n, which is a valid ated novel metho d provi halima jose raul r accur acy than the Fried malou equat ion in the estim ation of LDL-C . Paola alvarado SS et al. JACLYN. 2013; 310(1 9): 2061- 2068 (http ://ed ucati on.Qu estDi [employer]. com/f aq/FA Q164) Not Available [address] [place], [address], 05/25/2023 08:23:39 05/24/19 24 05/25/2023 LIPID PANEL , STAND CHASIDY chol/HDLC ratio 2.5 (calc ) <5.0 normal Not Available [address], [address], 05/25/2023 08:23:39 05/24/19 24 05/25/2023 LIPID PANEL , STAND CHASIDY non HDL cholesterol 99 mg/dL _(tru c) <130 normal For patie nts with diabe eddie plus 1 major ASCVD risk facto r, treat ing to a non-H DL-C goal of <100 mg/dL (LDL- C of <70 mg/dL ) is consi baldemard a thera peyamilkai c optio n. Not Available [address] [address] [address] , [place], [address], 05/25/2023 08:23:39 05/24/19 24 05/25/2023 COMPR EHENS RICKY METAB OLIC PANEL glucose 90 mg/dL 65-99 normal Fasti ng refer ence inter janine Not Available [address] [address] [place], [address], 05/25/2023 08:23:40 05/24/19 24 05/25/2023 COMPR EHENS RICKY METAB OLIC PANEL urea nitrogen (BUN) 21 mg/dL 7-25 normal Not Available [address], [address], 05/25/2023 08:23:40 05/24/19 24 05/25/2023 COMPR EHENS RICKY METAB OLIC PANEL creatinine 0.90 mg/dL 0.60-1 .00 normal Not Available [address], [address], 05/25/2023 08:23:40 05/24/19 24 05/25/2023 COMPR EHENS RICKY METAB OLIC PANEL eGFR 69 mL/mi n/1.7 3m2 > or = 60 normal Not Available [address], [address], 05/25/2023 08:23:40 05/24/19 24 05/25/2023 COMPR EHENS RICKY METAB OLIC PANEL BUN/creatini ne ratio SEE NOTE: (calc ) 6-22 Not Repor mari: BUN and Creat inine are withi n refer ence range . Not Available [address], [address], 05/25/2023 08:23:40 05/24/19 24 05/25/2023 COMPR EHENS RICKY METAB OLIC PANEL sodium 139 mmol/ L 135-14 6 normal Not Available [address], [address], 05/25/2023 08:23:40 05/24/19 24 05/25/2023 COMPR EHENS RICKY METAB OLIC PANEL potassium 4.2 mmol/ L 3.5-5. 3 normal Not Available [address], [address], 05/25/2023 08:23:40 05/24/19 24 05/25/2023 COMPR EHENS RICKY METAB OLIC PANEL chloride 107 mmol/ L 98-110 normal Not Available [address], [address], 05/25/2023 08:23:40 05/24/19 24 05/25/2023 COMPR EHENS RICKY METAB OLIC PANEL carbon dioxide 25 mmol/ L 20-32 normal Not Available [address], [address], 05/25/2023 08:23:40 05/24/19 24 05/25/2023 COMPR EHENS RICKY METAB OLIC PANEL calcium 9.5 mg/dL 8.6-10 .4 normal Not Available [address], [address], 05/25/2023 08:23:40 05/24/19 24 05/25/2023 COMPR EHENS RICKY METAB OLIC PANEL protein, total 7.0 g/dL 6.1-8. 1 normal Not Available [address], [address], 05/25/2023 08:23:40 05/24/19 24 05/25/2023 COMPR EHENS RICKY METAB OLIC PANEL albumin 4.1 g/dL 3.6-5. 1 normal Not Available [address], [address], 05/25/2023 08:23:40 05/24/19 24 05/25/2023 COMPR EHENS [place] METAB OLIC PANEL globulin 2.9 g/dL_ (calc ) 1.9-3. 7 normal Not Available [address], [id number], 05/25/2023 08:23:40 05/24/19 24 05/25/2023 COMPR EHENS [place] METAB OLIC PANEL albumin/glob ulin ratio 1.4 (calc ) 1.0-2. 5 normal Not Available [address], [id number], 05/25/2023 08:23:40 05/24/19 24 05/25/2023 COMPR EHENS [place] METAB OLIC PANEL bilirubin, total 0.4 mg/dL 0.2-1. 2 normal Not Available [address], [address], 05/25/2023 08:23:40 05/24/19 24 05/25/2023 COMPR EHENS [place] METAB OLIC PANEL alkaline phosphatase 84 U/L 37-153 normal Not Available [address], [id number], 05/25/2023 08:23:40 05/24/19 24 05/25/2023 COMPR EHENS [place] METAB OLIC PANEL AST 20 U/L 10-35 normal Not Available [address], [address], 05/25/2023 08:23:40 05/24/19 24 05/25/2023 COMPR EHENS [place] METAB OLIC PANEL ALT 14 U/L 6-29 normal Not Available [address], [address], 05/25/2023 08:23:40 05/24/19 24 05/25/2023 CBC (INCL UDES DIFF/ PLT) white blood cell count 7.5 thous and/u L 3.8-10 .8 normal Not Available [address], [address], 05/25/2023 08:23:41 05/24/19 24 05/25/2023 CBC (INCL UDES DIFF/ PLT) red blood cell count 4.84 lou on/uL 3.80-5 .10 normal Not Available [address], [address], 05/25/2023 08:23:41 05/24/19 24 05/25/2023 CBC (INCL UDES DIFF/ PLT) hemoglobin 13.9 g/dL 11.7-1 5.5 normal Not Available [address], [address], 05/25/2023 08:23:41 05/24/19 24 05/25/2023 CBC (INCL UDES DIFF/ PLT) hematocrit 43.3 % 35.0-4 5.0 normal Not Available [address], [address], 05/25/2023 08:23:41 05/24/19 24 05/25/2023 CBC (INCL UDES DIFF/ PLT) MCV 89.5 fL 80.0-1 00.0 normal Not Available [address], [address], 05/25/2023 08:23:41 05/24/19 24 05/25/2023 CBC (INCL UDES DIFF/ PLT) MCH 28.7 pg 27.0-3 3.0 normal Not Available [address], [address], 05/25/2023 08:23:41 05/24/19 24 05/25/2023 CBC (INCL UDES DIFF/ PLT) MCHC 32.1 g/dL 32.0-3 6.0 normal Not Available [address], [address], 05/25/2023 08:23:41 05/24/19 24 05/25/2023 CBC (INCL UDES DIFF/ PLT) RDW 12.1 % 11.0-1 5.0 normal Not Available [address], [address], 05/25/2023 08:23:41 05/24/19 24 05/25/2023 CBC (INCL UDES DIFF/ PLT) platelet count 249 thous and/u L 140-40 0 normal Not Available [address], [address], 05/25/2023 08:23:41 05/24/19 24 05/25/2023 CBC (INCL UDES DIFF/ PLT) MPV 12.0 fL 7.5-12 .5 normal Not Available [address], [address], 05/25/2023 08:23:41 05/24/19 24 05/25/2023 CBC (INCL UDES DIFF/ PLT) absolute neutrophils 4215 cells /uL 1500-7 800 normal Not Available [address], [address], 05/25/2023 08:23:41 05/24/19 24 05/25/2023 CBC (INCL UDES DIFF/ PLT) absolute lymphocytes 2355 cells /uL 850-39 00 normal Not Available [address], [address], 05/25/2023 08:23:41 05/24/19 24 05/25/2023 CBC (INCL UDES DIFF/ PLT) absolute monocytes 690 cells /uL 200-95 0 normal Not Available [address], [address], 05/25/2023 08:23:41 05/24/19 24 05/25/2023 CBC (INCL UDES DIFF/ PLT) absolute eosinophils 173 cells /uL 15-500 normal Not Available [address], [address], 05/25/2023 08:23:41 05/24/19 24 05/25/2023 CBC (INCL UDES DIFF/ PLT) absolute basophils 68 cells /uL 0-200 normal Not Available [address], [address], 05/25/2023 08:23:41 05/24/19 24 05/25/2023 CBC (INCL UDES DIFF/ PLT) neutrophils 56.2 % normal Not Available [address], [place], [address], 05/25/2023 08:23:41 05/24/19 24 05/25/2023 CBC (INCL UDES DIFF/ PLT) lymphocytes 31.4 % normal Not Available [facility] [address], [address], 05/25/2023 08:23:41 05/24/19 24 05/25/2023 CBC (INCL UDES DIFF/ PLT) monocytes 9.2 % normal Not Available [facility] [address], [address], 05/25/2023 08:23:41 05/24/19 24 05/25/2023 CBC (INCL UDES DIFF/ PLT) eosinophils 2.3 % normal Not Available [facility] [address], [address], 05/25/2023 08:23:41 05/24/19 24 05/25/2023 CBC (INCL UDES DIFF/ PLT) basophils 0.9 % normal Not Available [facility] [address], [address], 05/25/2023 08:23:41 05/24/19 24 05/25/2023 T4, FREE T4, free 1.3 NG/dL 0.8-1. 8 normal Not Available [facility] [address], [address], 05/25/2023 08:23:42 05/24/19 24 05/25/2023 TSH TSH 0.09 mIU/L 0.40-4 .50 low Not Available [facility] [address], [address], 05/25/2023 08:23:43 05/24/19 24 05/25/2023 VITAM IN D,25- OH,TO YOU,I A vitamin D,25-oh,tota l,ia 47 NG/mL 30-100 normal Vitam in D Statu s 25-OH Vitam in D: Defic iency : <20 ng/mL Insuf ficie ncy: 20 - 29 ng/mL Optim al: > or = 30 ng/mL For 25-OH Vitam in D testi ng on patie nts on D2-solano pplem entat ion and patie nts for whom quant itati on of D2 and D3 fract ions is requi red, the [facility] e[facility](TM ) 25-OH VIT D, (D2,D 3), LC/MS /MS is recom jaret d: order code 30272 (alex ents >2yrs ). See Note 1 Note 1 For addit ional infor carly coppola refer to http: //[facility] brittany christensen ics.c om/fa q/FAQ 199 (This link is being provi ded for infor benja king/ hannah aleojo ses only. ) Not Available [facility] [address] [address] [place], [address], 05/25/2023 08:23:44 11/25/19 24 11/25/2023 LIPID PANEL , STAND CHASIDY cholesterol, total 181 mg/dL <200 normal Not Available [facility] [address], [address], 11/25/2023 19:22:14 11/25/19 24 11/25/2023 LIPID PANEL , STAND CHASIDY HDL cholesterol 64 mg/dL > or = 50 normal Not Available [facility] [address], [address], 11/25/2023 19:22:14 11/25/19 24 11/25/2023 LIPID PANEL , STAND CHASIDY triglyceride s 85 mg/dL <150 normal Not Available [facility] [address] [address] [place], [address], 11/25/2023 19:22:14 11/25/19 24 11/25/2023 LIPID PANEL , STAND CHASIDY LDL-choleste rol 99 mg/dL _(tru c) normal Refer ence range : <100 Ashely able range <100 mg/dL for prima ry preve ntion ; <70 mg/dL for patie nts with CHD or diabe tic patie nts with > or = 2 CHD risk facto rs. LDL-C is now calcu lated using the Paola n-Hop kins calcu davegunjan n, which is a valid ated novel metho d provi ding jose raul r accur acy than the Fried malou equat ion in the estim ation of LDL-C . Paola alvarado SS et al. JACLYN. 2013; 310(1 9): 2061- 2068 (http ://ed ucati on.Qu SiteJabber. com/f aq/FA Q164) Not Available [facility] [address] [address] [place], [address], 11/25/2023 19:22:14 11/25/1911/25/2023 LIPID PANEL , STAND CHASIDY chol/HDLC ratio 2.8 (calc ) <5.0 normal Not Available [facility] [address] [address] [address] , [place], [address], 11/25/2023 19:22:14 11/25/1911/25/2023 LIPID PANEL , STAND CHASIDY non HDL cholesterol 117 mg/dL _(tru c) <130 normal For patie nts with diabe eddie plus 1 major ASCVD risk facto r, treat ing to a non-H DL-C goal of <100 mg/dL (LDL- C of <70 mg/dL ) is consi dered a thera peyamilkai c optio n. Not Available [facility] [address] [address] [address], [place], [address], 11/25/2023 19:22:14 11/25/1911/25/2023 COMPR EHENS RICKY METAB OLIC PANEL glucose 91 mg/dL 65-99 normal Fasti ng refer ence inter janine Not Available [facility] [address] [address] [place], [address], 11/25/2023 19:22:15 11/25/192024 COMPR EHENS RICKY METAB OLIC PANEL urea nitrogen (BUN) 14 mg/dL 7-25 normal Not Available [address], [address], 11/25/2023 19:22:15 11/25/19 24 11/25/2023 COMPR EHENS RICKY METAB OLIC PANEL creatinine 1.00 mg/dL 0.60-1 .00 normal Not Available [address], [address], 11/25/2023 19:22:15 11/25/19 24 11/25/2023 COMPR EHENS RICKY METAB OLIC PANEL eGFR 61 mL/mi n/1.7 3m2 > or = 60 normal Not Available [address], [address], 11/25/2023 19:22:15 11/25/19 24 11/25/2023 COMPR EHENS RICKY METAB OLIC PANEL BUN/creatini ne ratio SEE NOTE: (calc ) 6-22 Not Repor mari: BUN and Creat inine are withi n refer ence range . Not Available [address], [address], 11/25/2023 19:22:15 11/25/19 24 11/25/2023 COMPR EHENS RICKY METAB OLIC PANEL sodium 134 mmol/ L 135-14 6 low Not Available [address], [address], 11/25/2023 19:22:15 11/25/19 24 11/25/2023 COMPR EHENS RICKY METAB OLIC PANEL potassium 4.6 mmol/ L 3.5-5. 3 normal Not Available [address], [address], 11/25/2023 19:22:15 11/25/19 24 11/25/2023 COMPR EHENS RICKY METAB OLIC PANEL chloride 100 mmol/ L 98-110 normal Not Available [address], [address], 11/25/2023 19:22:15 11/25/19 24 11/25/2023 COMPR EHENS RICKY METAB OLIC PANEL carbon dioxide 28 mmol/ L 20-32 normal Not Available [address], [address], 11/25/2023 19:22:15 11/25/19 24 11/25/2023 COMPR EHENS RICKY METAB OLIC PANEL calcium 9.8 mg/dL 8.6-10 .4 normal Not Available [address], [address], 11/25/2023 19:22:15 11/25/19 24 11/25/2023 COMPR EHENS RICKY METAB OLIC PANEL protein, total 7.1 g/dL 6.1-8. 1 normal Not Available [address], [address], 11/25/2023 19:22:15 11/25/19 24 11/25/2023 COMPR EHENS RICKY METAB OLIC PANEL albumin 4.1 g/dL 3.6-5. 1 normal Not Available [address], [address], 11/25/2023 19:22:15 11/25/19 24 11/25/2023 COMPR EHENS RICKY METAB OLIC PANEL globulin 3.0 g/dL_ (calc ) 1.9-3. 7 normal Not Available [address], [address], 11/25/2023 19:22:15 11/25/19 24 11/25/2023 COMPR EHENS RICKY METAB OLIC PANEL albumin/glob ulin ratio 1.4 (calc ) 1.0-2. 5 normal Not Available [address], [address], 11/25/2023 19:22:15 11/25/19 24 11/25/2023 COMPR EHENS RICKY METAB OLIC PANEL bilirubin, total 0.7 mg/dL 0.2-1. 2 normal Not Available [address], [address], 11/25/2023 19:22:15 11/25/19 24 11/25/2023 COMPR EHENS RICKY METAB OLIC PANEL alkaline phosphatase 83 U/L 37-153 normal Not Available [address], [address], 11/25/2023 19:22:15 11/25/19 24 11/25/2023 COMPR EHENS RICKY METAB OLIC PANEL AST 20 U/L 10-35 normal Not Available [address], [address], 11/25/2023 19:22:15 11/25/19 24 11/25/2023 COMPR EHENS RICKY METAB OLIC PANEL ALT 14 U/L 6-29 normal Not Available [address], [address], 11/25/2023 19:22:15 11/25/19 24 11/25/2023 CBC (INCL UDES DIFF/ PLT) white blood cell count 8.2 thous and/u L 3.8-10 .8 normal Not Available [address], [address], 11/25/2023 19:22:16 11/25/19 24 11/25/2023 CBC (INCL UDES DIFF/ PLT) red blood cell count 4.82 lou on/uL 3.80-5 .10 normal Not Available [address], [address], 11/25/2023 19:22:16 11/25/19 24 11/25/2023 CBC (INCL UDES DIFF/ PLT) hemoglobin 13.9 g/dL 11.7-1 5.5 normal Not Available [address], [address], 11/25/2023 19:22:16 11/25/19 24 11/25/2023 CBC (INCL UDES DIFF/ PLT) hematocrit 43.9 % 35.0-4 5.0 normal Not Available [address], [address], 11/25/2023 19:22:16 11/25/19 24 11/25/2023 CBC (INCL UDES DIFF/ PLT) MCV 91.1 fL 80.0-1 00.0 normal Not Available [address], [address], 11/25/2023 19:22:16 11/25/19 24 11/25/2023 CBC (INCL UDES DIFF/ PLT) MCH 28.8 pg 27.0-3 3.0 normal Not Available [address], [address], 11/25/2023 19:22:16 11/25/19 24 11/25/2023 CBC (INCL UDES DIFF/ PLT) MCHC 31.7 g/dL 32.0-3 6.0 low Not Available [address], [address], 11/25/2023 19:22:16 11/25/19 24 11/25/2023 CBC (INCL UDES DIFF/ PLT) RDW 12.3 % 11.0-1 5.0 normal Not Available [address], [address], 11/25/2023 19:22:16 11/25/19 24 11/25/2023 CBC (INCL UDES DIFF/ PLT) platelet count 271 thous and/u L 140-40 0 normal Not Available [address] [place], [address], 11/25/2023 19:22:16 11/25/19 24 11/25/2023 CBC (INCL UDES DIFF/ PLT) MPV 11.4 fL 7.5-12 .5 normal Not Available [address], [address], 11/25/2023 19:22:16 11/25/19 24 11/25/2023 CBC (INCL UDES DIFF/ PLT) absolute neutrophils 5018 cells /uL 1500-7 800 normal Not Available [address], [address], 11/25/2023 19:22:16 11/25/19 24 11/25/2023 CBC (INCL UDES DIFF/ PLT) absolute lymphocytes 2247 cells /uL 850-39 00 normal Not Available [address], [address], 11/25/2023 19:22:16 11/25/19 24 11/25/2023 CBC (INCL UDES DIFF/ PLT) absolute monocytes 697 cells /uL 200-95 0 normal Not Available [address], [address], 11/25/2023 19:22:16 11/25/19 24 11/25/2023 CBC (INCL UDES DIFF/ PLT) absolute eosinophils 139 cells /uL 15-500 normal Not Available [address], [address], 11/25/2023 19:22:16 11/25/19 24 11/25/2023 CBC (INCL UDES DIFF/ PLT) absolute basophils 98 cells /uL 0-200 normal Not Available [address], [address], 11/25/2023 19:22:16 11/25/19 24 11/25/2023 CBC (INCL UDES DIFF/ PLT) neutrophils 61.2 % normal Not Available [facility] [address], [address], 11/25/2023 19:22:16 11/25/19 24 11/25/2023 CBC (INCL UDES DIFF/ PLT) lymphocytes 27.4 % normal Not Available [facility] [address], [address], 11/25/2023 19:22:16 11/25/19 24 11/25/2023 CBC (INCL UDES DIFF/ PLT) monocytes 8.5 % normal Not Available [facility] [address], [address], 11/25/2023 19:22:16 11/25/19 24 11/25/2023 CBC (INCL UDES DIFF/ PLT) eosinophils 1.7 % normal Not Available [facility] [address], [address], 11/25/2023 19:22:16 11/25/19 24 11/25/2023 CBC (INCL UDES DIFF/ PLT) basophils 1.2 % normal Not Available [facility] [address], [address], 11/25/2023 19:22:16 11/25/19 24 11/25/2023 T4, FREE T4, free 1.5 NG/dL 0.8-1. 8 normal Not Available [facility] [address], [address], 11/25/2023 19:22:17 11/25/19 24 11/25/2023 TSH TSH 0.18 mIU/L 0.40-4 .50 low Not Available [facility] [address], [address], 11/25/2023 19:22:17 07/14/19 23 07/13/2022 XR, hand No observ ation record ed. [address], [place], [address], 07/13/2022 16:31:44 07/22/19 23 07/21/2022 XR, hand No observ ation record ed. [email or web address], [place], [address], 07/21/2022 17:27:49 06/28/19 24 06/28/2023 MAMMO , scree martine, bilat eral No observ ation record ed. [address], [place], [address], 06/28/2023 16:38:32 07/13/19 24 06/28/2023 MAMMO , scree martine, bilat eral No observ ation record ed. [address] [facility], [place], [address], 07/13/2023 14:07:55 07/13/19 MAMMO , scree martine, digit al, bilat eral No observ ation record ed. [address] [address], [place], [address], 07/13/2023 14:07:55 05/27/19 25 05/24/2024 bone densi ty No observ ation record ed. [address] [facility], [place], [address], 05/26/2024 16:54:24 Result Notes None recorded. Problems Name Problem SNOMED Code Status Onset Date Resolution Date Notes Provider Name and Address Organization Details Recorded Time Acute bronchitis 15726653 Active 2021 Not Available [facility] 3 05:56:17 Wears glasses 763680785 Active 2017 Not Available [facility] 3 05:56:17 Screening mammography Active 2021 Not Available [facility] 3 05:56:17 Pure hypercholeste rolemia 356110212 Active Not Available [facility] 3 05:56:17 Vitamin D deficiency 95273644 Active 2021 Not Available [facility] 3 05:56:17 Hypothyroidis m 75943131 Active Not Available [facility] 3 05:56:17 Obesity 837364982 Active 2021 Not Available [facility] 3 05:56:17 Sleep apnea 63691843 Active Not Available [facility] 3 05:56:17 Senile osteoporosis 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 [facility] [employer] [facility] 5 11:16:58 Problem Notes None recorded. Procedures Surgical History None recorded. Imaging Results Imaging Date Name Status LastModified by Organiz ation Details LastModified Time 07/13/2022 XR, hand completed [address], [address], 07/13/2022 16:31:44 07/21/2022 XR, hand completed [address], [address], 07/21/2022 17:27:49 06/28/2023 MAMMO, screening, bilateral completed [address], [address], 06/28/2023 16:38:32 06/28/2023 MAMMO, screening, bilateral completed [address] [place] [address], [address], 07/13/2023 14:07:55 07/13/2023 MAMMO, screening, digital, bilateral completed [address] [facility] [address], [place], [address], 07/13/2023 14:07:55 05/24/2024 bone density completed [address], [place], [address], 05/26/2024 16:54:24 Procedure Notes None recorded. Medical Equipment None Reported. Allergies Allergen ID Allergen Name Allergen Category Reaction Reaction Severity Criticality Documentation Date Start Date Code Code System Note Provider Name and Address Organization Details Recorded Time 28490 Lipitor medicatio n other Not available Not available 05/13/2022 13684 5 RxNorm bladd er incon tinen ce Not Available [facility] 3 07:42:56 [address]47[address] aspirin / caffeine / propoxyph nitesh medicatio n rash Not available Not available 05/13/2022 63886 8 RxNorm Not Available [facility] 3 07:42:57 63360 propoxyph nitesh hydrochlo ride medicatio n Not available Not available Not available 05/13/2022 04957 RxNorm Not Available [facility] 3 07:42:57 Medications Name Sig Start Date Stop Date Status Note LastModified by Organization Details LastModified Time amoxicillin 500 mg capsule Take 1 capsule 3 times a day by oral route for 10 days. active Not Available Not Available No t Available azithromyci n 250 mg tablet TAKE 2 TABLETS (500 MG) BY ORAL ROUTE ONCE DAILY FOR 1 DAY THEN 1 TABLET (250 MG) BY ORAL ROUTE ONCE DAILY FOR 4 DAYS 05/05 completed Not Available Not Available Not Available pravastatin 40 mg tablet TAKE 1 TABLET BY MOUTH EVERY DAY 12/25 completed Not Available Not Available Not Available ibuprofen 800 mg tablet TAKE 1 TABLET BY MOUTH EVERY 6 TO 8 HOURS NEEDED FOR PAIN active Not Available Not Available No t Available benzonatate 200 mg capsule Take 1 capsule 3 times a day by oral route. 05/22 completed Not Available Not Available Not Available Medrol (Dhaval) 4 mg tablets in a dose pack Take by oral route as directed active Not Available Not Available No t Available promethazin e 6.25 mg-codeine 10 mg/5 mL syrup Take 5 ML EVERY 6 HOURS by oral route PRN for cough 11/05 completed Not Available Not Available Not Available penicillin V potassium 500 mg tablet TAKE 1 TABLET BY MOUTH FOUR TIMES DAILY 05/25 completed Not Available Not Available Not Available levothyroxi ne 100 mcg tablet TAKE 1 TABLET BY MOUTH DAILY active Not Available Not Available No t Available cephalexin 500 mg capsule TAKE 1 CAPSULE BY MOUTH THREE TIMES DAILY 11/20 completed Not Available Not Available Not Available Cipro 500 mg tablet Take 1 tablet twice a day by oral route for 10 days. 05/25 completed Not Available Not Available Not Available clotrimazol e-betametha sone 1 %-0.05 % topical cream APPLY TO THE AFFECTED AND SURROUNDI NG AREAS OF SKIN BY TOPICAL ROUTE 2 TIMES PER DAY IN THE MORNING AND EVENING FOR 2 WEEKS 05/22 completed Not Available Not Available Not Available Transderm-S copper plate printer 1 mg over 3 days transdermal patch Apply by transderm al route q 72 hours 12/09 completed Not Available Not Available Not Available albuterol sulfate HFA 90 mcg/actuati on aerosol inhaler Inhale 2 puffs every 4 hours by inhalatio n route as needed. 2020 active Not Available Not Available Not Avai lable hydroxyzine HCl 10 mg tablet Take by oral route four times daily PRN for itching active Not Available Not Available No t Available naproxen 500 mg tablet 10/25 completed Not Available Not Available Not Available biotin 500 mcg capsule Take by oral route. 10/25 completed Not Available Not Available Not Available Bactrim DS 800 mg-160 mg tablet Take 1 tablet every 12 hours by oral route for 7 days. 06/11 completed Not Available Not Available Not Available rosuvastati n 10 mg tablet TAKE 1 TABLET BY MOUTH EVERY DAY active Not Available Not Available No t Available Multivitami n 50 Plus tablet Take 1 tablet every day by oral route. active Not Available Not Available No t Available cranberry 05/22 completed Not Available Not Available Not Available biotin 06/11 completed Not Available Not Available Not Available Vitamin D 05/22 completed Not Available Not Available Not Available Ocuvite 06/11 completed Not Available Not Available Not Available [place] 3 05/22 completed Not Available Not Available Not Available multivitami n 05/22 completed Not Available Not Available Not Available Calcium 500 06/11 completed Not Available Not Available Not Available Tolstoy Oil-1000 2014 active Not Available Not Available Not Avai lable Calcium 600 + D(3) 05/22 completed Not Available Not Available Not Available Ocuvite 150 mg-30 unit-5 mg-150 mg capsule Take 1 capsule every day by oral route. 2017 active Not Available Not Available Not Avai lable levothyroxi ne 100 mcg capsule once daily 11/05 completed Not Available Not Available Not Available D3 DOTS 05/22 completed Not Available Not Available Not Available Os-Tru 500 + D3 500 mg-15 mcg (600 unit) tablet Take 1 tablet every day by oral route. active Not Available Not Available No t Available Vitamin D2 06/11 completed Not Available Not Available Not Available rosuvastati n 10 mg sprinkle capsule Take 1 capsule every day by oral route. active Not Available Not Available No t Available omega 3 360 mg-dha 108 mg-epa 180 mg-fish oil 1,200 mg capsule Take 1 capsule every day by oral route. active Not Available Not Available No t Available Vitals Date Recorded Body height Body mass index (BMI) Body weight Heart rate Oxygen saturation Oxygen saturation in Arterial blood by Pulse oximetry Body temperature Systolic blood pressure Diastolic blood pressure Provider Name and Address Organization Details Last Updated DateTime 3 157.48 cm 37.7 kg/m2 05946.0 3 g 87 /min 94 % 94 % 97 [degF] 122 mm[Hg] 78 mm[Hg] Maria Elena [facility] [employer] [facility] 3 10:47:58 Date Recorded Body height Body mass index (BMI) Body weight Heart rate Body temperature Oxygen saturation Oxygen saturation in Arterial blood by Pulse oximetry Systolic blood pressure Diastolic blood pressure Provider Name and Address Organization Details Last Updated DateTime 3 157.48 cm 37.1 kg/m2 87977.2 5 g 86 /min 97 [degF] 92 % 92 % 124 mm[Hg] 62 mm[Hg] Maria Elena Deutsch [employer] [facility] [employer] [facility] 3 11:11:53 Date Recorded Body height Body mass index (BMI) Body weight Heart rate Body temperature Oxygen saturation Oxygen saturation in Arterial blood by Pulse oximetry Systolic blood pressure Diastolic blood pressure Provider Name and Address Organization Details Last Updated DateTime 4 157.48 cm 35.1 kg/m2 51806.7 4 g 82 /min 97 [degF] 93 % 93 % 122 mm[Hg] 80 mm[Hg] Maria Elena Deutsch [employer] [facility] [employer] [facility] 4 11:33:48 Date Recorded Body height Body mass index (BMI) Body weight Heart rate Body temperature Oxygen saturation Oxygen saturation in Arterial blood by Pulse oximetry Systolic blood pressure Diastolic blood pressure Provider Name and Address Organization Details Last Updated DateTime 4 157.48 cm 36.2 kg/m2 23917.2 9 g 81 /min 97.8 [degF] 95 % 95 % 118 mm[Hg] 84 mm[Hg] REINA De La Fuente [facility] 4 10:53:45 Date Recorded Body height Body mass index (BMI) Body weight Heart rate Body temperature Oxygen saturation Oxygen saturation in Arterial blood by Pulse oximetry Systolic blood pressure Diastolic blood pressure Provider Name and Address Organization Details Last Updated DateTime 5 157.48 cm 39 kg/m2 26953.1 7 g 72 /min 97 [degF] 95 % 95 % 120 mm[Hg] 68 mm[Hg] Maria Elena Deutsch [employer] [facility] [employer] [facility] 5 10:52:49 Social History Question Answer Notes LastModified by Organizat ion Details LastModified Time Are You Blind Or Do You Have Difficulty Seeing? No [id number] Information not available 05/13/2022 In The 14 Days Before Symptom Onset, Have You Had Close Contact With A Laboratory-confirme d COVID-19 While That Case Was Ill? No [id number] Information not available 05/13/2022 In The 14 Days Before Symptom Onset, Have You Had Close Contact With A Person Who Is Under Investigation For COVID-19 While That Person Was Ill? No [id number] Information not available 05/13/2022 Are You Deaf Or Do You Have Serious Difficulty Hearing? No [id number] Information not available 05/13/2022 Have You Recently Traveled Abroad? No [id number] Information not available 05/13/2022 Sex: Unknown Functional Status Question Answer Note LastModified by Organizat ion Details LastModified Time Do you have difficulty walking or climbing stairs? No [id number] Information not available 05/13/2022 Do you have transportation difficulties? No [id number] Information not available 05/13/2022 Are you able to walk? YESWOREST [id number] Information not available 05/13/2022 Do you have difficulty doing errands alone? No [id number] Information not available 05/13/2022 Are you able to care for yourself? Yes [id number] Information not available 05/13/2022 Do you have difficulty dressing or bathing? No [id number] Information not available 05/13/2022 Mental Status Question Answer Note LastModified by Organizat ion Details LastModified Time Do you have difficulty concentrating, remembering or making decisions? No [id number] Information not available 05/13/2022 Family History Nothing Reported Notes:Mother living 86 good health but some dementia Father 83 Type II Diabetes, essential hypertension, arteriosclerotic heart disease One sister living and in good health. Medical History Condition Response NERVE DISEASE N BLINDNESS N RHEUMATIC FEVER N KIDNEY STONES N BLADDER PROBLEMS N MRSA N OTHER # 1 N POLIO N LUNG DISEASE/DISORDER N HISTORY OF DRUG ABUSE N RADIATION / CHEMOTHERAPY N COPD N Other # 2 N BLOOD DISEASES N EAR OR HEARING PROBLEMS N MUMPS N SHINGLES N BOWEL PROBLEMS N DEPRESSION (INCLUDING POST ) N FAILED BACK SYNDROME N STROKE/TIA N ULCERS N BENIGN PROSTATIC HYPERPLASIA N MEASLES N HYPOTENSION N MYOCARDIAL INFARCTION N OBESITY N GERD/NAUSEA N ANEURYSM N URINARY/BLADDER/KIDNEY PROBLEMS N CORONARY ARTERY DISEASE (CAD) N Do you have Advance directive? N ADDICTION CONCERNS N ENDOMETRIOSIS N Impotence N USE OF BLOOD THINNERS N SKIN PROBLEMS N GASTROINTESTINAL DISORDER N PERIPHERAL VASCULAR DISEASE N MUSCLE,JOINT OR BONE PROBLEMS N GASTROINTESTINAL BLEEDING N BLOOD CLOTS N ASTHMA N Abdominal Pain N CATARACTS N ARTERIAL INSUFFICIENCY N ERECTILE DYSFUNCTION N VARICOSITIES N GI PROBLEMS N Low Testosterone N INFERTILITY N AIDS/HIV N CHEMOTHERAPY / RADIATION N LIVER DISEASE N MALE HYPOGONADISM N HYPERTENSION N Deficiency N TOURETTE'S N ANXIETY DISORDER N BLOOD TRANSFUSION N ANEMIA/BLOOD DISORDER N CHRONIC EAR INFECTIONS N TUBERCULOSIS N GLAUCOMA N FOOT PROBLEM N DIVERTICULITIS N CHICKENPOX N SLEEP APNEA N BACK INJECTIONS N ALLERGIES/HAYFEVER N INFECTIOUS DISEASE N HEART ARRHYTHMIA N PROSTATE N ESRD N INSOMNIA N HIGH CHOLESTEROL / HYPERLIPIDEMIA Y HYPERTHYROIDISM N EYE PROBLEMS N PVD N EDEMA N CHRONIC PAIN SYNDROME N HYPOTHYROIDISM Y CONSTIPATION N CAROTID BLOCKAGE N BACK / NECK PROBLEMS N HAVE YOU BEEN HOSPITALIZED OR SEEN IN [facility] IN THE PAST YEAR ? N ATHEROSCLEROSIS N BREAST PROBLEMS N DIALYSIS N POLYCYSTIC OVARIES N ECZEMA N OSTEOPOROSIS N ARTHRITIS N NO SIGNIFICANT PAST MEDICAL HISTORY N APPENDICITIS N DIABETES, TYPE N BAD TEETH N VON WILLIBRAND'S DISEASE N ENT N HEARTBURN / REFLUX N GI N AUTISM SPECTRUM DISORDER (ASD) N POST LAMINECTOMY SYNDROME N HEPATITIS / LIVER DISEASE N GOUT N SLEEP DISORDER N ALZHEIMER'S DISEASE N Brain Problems N HERPES N DEMENTIA N HEADACHES/MIGRAINES N SEIZURES/EPILEPSY N VASCULAR DISEASE N PACEMAKER N DIZZINESS N HEART DISEASE/HEART PROBLEMS N KIDNEY DISEASE N MULTIPLE SCLEROSIS N NEUROPSYCHOLOGICAL N CARDIAC ARRHYTHMIA N CANCER: SPECIFY N ATRIAL FIBRILLATION N Gall Stones N PULMONARY EMBOLISM N AUTOIMMUNE DISEASE N Gynecological HistoryNo gynecological history recorded. Obstetrics History GPAL:G 0 P 0 0 0 0 Immunizations Vaccine Type Date Status Note Provider Nam e and Address Organization Details Recorded Time Influenza, high-dose, quadrivalent, PF 3 completed CAROLYN [place] 9+ [facility] 01/19/2023 17:49:31 COVID-19, mRNA, LNP-S, PF, 100 mcg/0.5mL dose or 50 mcg/0.25mL dose 1 completed Not Available [facility] 12/15/2022 05:56:18 COVID-19 Non-US Vaccine, Product Unknown 1 completed Not Available [facility] 12/15/2022 05:56:18 COVID-19 Non-US Vaccine, Product Unknown 1 completed Not Available [facility] 12/15/2022 05:56:18 Influenza, high-dose, quadrivalent, PF 2 completed Not Available [facility] 12/15/2022 05:56:17 Influenza, high-dose, quadrivalent, PF 1 completed Not Available [facility] 12/15/2022 05:56:17 Pneumococcal conjugate PCV 13 9 completed Not Available [facility] 12/15/2022 05:56:18 pneumococcal polysaccharide PPV23 0 completed Not Available [facility] 12/15/2022 05:56:18 Past Encounters Encounter ID Performer Location Encounter Start Date Encounter Closed Date Diagnosis/Indication Diagnosis SNOMED-CT Code Diagnosis ICD10 Code Diagnosis Note [id number] [facility] Internal Med Shaileshvi llkarmen [address] [place] [address] y , [place] [address] 10/25/2020 00:00:00 10/25/2020 16:41:[id number] [facility] Internal Med Shaileshvi llkarmen [address] [place] [address] y , [place] [address] 04/25/2021 00:00:00 04/25/2021 10:58:[id number] [facility] Internal Med Mike llkarmen [address] [place] [address] [place] [address] 11/21/2021 00:00:00 11/21/2021 11:03:[id number] [facility] Internal Med Shaileshvi llkarm[place] [address] [place] [address] y , [place] [address] 05/22/2022 10:37:46 05/22/2022 10:56:12 Pure hypercholesterolemia 993927429 E78.00 Hypothyroidism 58301824 E03.9 Sleep apnea 12184832 G47 .30 Obesity 225712350 E66.9 Vitamin D deficiency 347 72848 E55.9 [id number] Thur[address] [facility] Internal Med [place] [address] [place] [address] [place] [address] 11/20/2022 10:45:35 11/20/2022 11:25:57 Pure hypercholesterolemia 069844991 E78.00 Hypothyroidism 70850936 E03.9 Obesity 378981435 E66.9 Sleep apnea 58128540 G47 .30 [id number] [address] [facility] Internal Med [place] [address] [facility] [place] [address] 05/21/2023 11:22:57 05/21/2023 11:51:25 Pure hypercholesterolemia 223094851 E78.00 Hypothyroidism 10952183 E03.9 Sleep apnea 84563077 G47 .30 Obesity 022518956 E66.9 Vitamin D deficiency 347 81618 E55.9 [id number] [address] [facility] Internal Med [place] [address] [facility] [place] [address] 11/25/2023 10:48:10 11/25/2023 14:38:33 Pure hypercholesterolemia 375734677 E78.00 Hypothyroidism 91394790 E03.9 Sleep apnea 26084750 G47 .30 Obesity 949291255 E66.9 [id number] Santos Thurman MD [facility] [address] [facility] [address] [place] [address] 05/25/2024 10:38:13 05/25/2024 11:16:07 Pure hypercholesterolemia 403112875 E78.00 Hypothyroidism 14174765 E03.9 Sleep apnea 11473367 G47 .30 Acute thor acic back pain 821451692 M54.6 Obesity 269463685 E66.9 Vitamin D deficiency 347 90843 E55.9 Health Concerns Section Related Observation LastModified by Organization Detai ls LastModified Time None Recorded Concern Status LastModified by Organization Details LastModified Time None Recorded Advance Directives Directive None Recorded Payers Encounter Date Sequence Insurance Name Policy Number Policy Bernal Covered Member ID Bernal Member ID Guarantor Name 05/22/2022 1 [employer] (MEDICARE REPLACEMENT PPO) [id number] 1 Haritha Ramos [id number] Haritha Ramos 11/20/2022 1 [employer] (MEDICARE REPLACEMENT PPO) [id number] 1 Haritha Ramos [id number] Haritha Ramos 05/21/2023 1 [employer] (MEDICARE REPLACEMENT PPO) [id number] 1 Haritha Ramos [id number] Haritha Ramos 11/25/2023 1 [employer] (MEDICARE REPLACEMENT PPO) [id number] 1 Haritha Ramos [id number] Haritha Ramos 05/25/2024 1 [employer] (MEDICARE REPLACEMENT PPO) [id number] 1 Haritha Ramos [id number] Haritha Ramos Notes Date Note Type Note Provider Name and Address Organization Details Recorded Time 3 text/html Patient Name: Haritha RamosDate Of Service: Wednesday ( 05.22.2022 ): 1955 Age: 67 There has been approximately a 12 lb weight loss since 11/21/2021. This represents approximately a 5.5% change in weight. Weight change attributable to lifestyle changes. Vital Signs:Blood Pressure: Sitting Rt. Arm 122/78Pulse: Sitting 87 /min and RegularRespirations: 12Height 62 in or 1.6 mWeight 206 lb or 93.4 kgBMI 37.7Temperature: 97 F or 36.1 CPulse Oximetry: 94 % at rest on no oxygen Chief Complaint: Addressed in HPI Problems or conditions discussed in the HPI were the only ones reviewed during the encounter.Only social and family history addressed in the HPI were reviewed during this encounter. Attendant(s): None Constitutional and Systemic Symptoms: none Medication Reconciliation: from medication list. History of Present Illness #1. Type II Hypercholesterolaemia: Currently taking medication and tolerating well. No interval complaints of any muscle pain or arthralgia. No significant liver changes with medications. Last lipid panel: fair control. Therapy reviewed regarding treatment of cholesterol management and include diet and Pravachol. #2. Hx of hypothyroidism currently stable. Heat intolerance: no Fatigue: no Weight gain: no Difficulty concentrating: no Muscle Symptoms: none Skin Texture: normal Skin Color: normal Currently taking synthroid. #3. Sleep Apnea: Type: CHUCK Current doing well. No significant daytime somnolence or problems performing daily chores. Using CPAP on nightly basis . Overall has shown no significant improvement.[place] Sleepiness ScaleSitting and ReadinWatching TV: 1Sitting Inactive in a Public Place: 0Passenger in a Car: 1Lying Down in Afternoon: 1Sitting and Talking to someone: 0Sitting quietly after lunch: 0In a car while stopped or drivinScore Interpretation: 0-7 No evidence of abnormally sleepy #4. Hx of obesity. Currently mildly obese. Has tried numerous dietary support and supplements with no benefit. Instructed on the health consequences of the obese status particularly diabetes and heart disease. Potential candidate for bariatric surgery: Yes but does no wish to pursue. Wishes to be evaluated by Dietary: No and was offered to be evaluated by dietary.Medication List Reviewed and Reconciled 05/22/2022Ocuvite One DailySynthroid 0.137 MG (TABLET - ORAL) One Daily For Thyroid ReplacementOs-tru D 500 MG One BidPravachol 40 MG (TABLET - ORAL) One Hs For CholesterolOmega-3 1000 MG One Bid For CholesterolCpap OsaMultivitamin DailyADRs List Reviewed 05/22/2022arvon Compound Unknown ReactionLipitor Bladder IncontinenceVaccination and Scxyhphfnmpx7592-79 Covid Booster Vayjoee9567-67 Covid Mniirsi1162-02 Pneumovax 012053-36 Prevnar 874145-84 InfluenzaSurgical HistoryBone Graph Right ClaviclePreventative Testing Confirmed by Our Jowjwbs0002/10/2022 MAMMOGRAM / ALBUMIN 4.1 G/DL12/18/2020 DEXA SCAN03/06/2014 COLONOSCOPY (10 YEARS) 03/06/2024Social 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Family HistoryMother 89 good health with some dementiaFather 83 Type II Diabetes, essential hypertension, arteriosclerotic heart diseaseOne sister living and in good health.Menarche 9 Menopause A0 Santos Thurman MD [address] [facility], [facility] [address], [place], [address], [facility] 05/22/2022 10:55:03 3 text/html Patient Name: Haritha Cunningham Of Service: Wednesday ( 11.20.2022 ): 1955 Age: 67 There has been approximately a 3 lb weight loss since 05/22/2022. This represents approximately a 1.5% change in weight. Weight change attributable to lifestyle changes. Vital Signs:Blood Pressure: Sitting Rt. Arm 124/62Pulse: Sitting 86 /min and RegularRespirations: 12Height 62 in or 1.6 mWeight 203 lb or 92.1 kgBMI 37.1Temperature: 97 F or 36.1 CPulse Oximetry: 92 % at rest on no oxygen Chief Complaint: Addressed in HPI Problems or conditions discussed in the HPI were the only ones reviewed during the encounter.Only social and family history addressed in the HPI were reviewed during this encounter. Attendant(s): None Constitutional and Systemic Symptoms: none Medication Reconciliation: from medication list. History of Present Illness #1. Type II Hypercholesterolaemia: Currently taking medication and tolerating well. No interval complaints of any muscle pain or arthralgia. No significant liver changes with medications. Last lipid panel: excellent control. Therapy reviewed regarding treatment of cholesterol management and include diet and Pravachol. #2. Hx of hypothyroidism currently stable. Heat intolerance: no Fatigue: no Weight gain: no Difficulty concentrating: no Muscle Symptoms: none Skin Texture: normal Skin Color: normal Currently taking Synthroid. #3. Sleep Apnea: Type: CHUCK Current doing well. No significant daytime somnolence or problems performing daily chores. Using CPAP on nightly basis . Overall has shown considerable improvement.[place] Sleepiness ScaleSitting and ReadinWatching TV: 1Sitting Inactive in a Public Place: 1Passenger in a Car: 0Lying Down in Afternoon: 1Sitting and Talking to someone: 0Sitting quietly after lunch: 0In a car while stopped or drivinScore Interpretation: 0-7 No evidence of abnormally sleepy #4. Hx of obesity. Currently Class 2 Obesity BMI 35-39.99. Has tried numerous dietary support and supplements with no benefit. Instructed on the health consequences of the obese status particularly cancer - diabetes and heart disease. Discussed new modalities of weight loss including GLP-1 medications that are used to treat diabetes. Potential candidate for bariatric surgery: No. Wishes to be evaluated by Dietary: No and was offered to be evaluated and instructed by pr manager on weight loss diet.Medication List Reviewed and Reconciled 11/20/2022Ocuvite One DailySynthroid 0.137 MG (TABLET - ORAL) One Daily For Thyroid ReplacementOs-tru D 500 MG One BidPravachol 40 MG (TABLET - ORAL) One Hs For CholesterolOmega-3 1000 MG One Bid For CholesterolCpap OsaMultivitamin DailyADRs List Reviewed 3Darvon Compound Unknown ReactionLipitor Bladder IncontinenceVaccination and Tvfpsomyhayl8126-67 Covid Booster Zmmgick7861-42 Covid Jkoqksl5788-61 Pneumovax 621532-66 Prevnar 139258-83 InfluenzaSurgical HistoryBone Graph Right ClaviclePreventative Testing Confirmed by Our Bqqyeth8106/09/2022 ALBUMIN 4.3 G/DL02/10/2022 MAMMOGRAM DEXA SCAN03/06/2014 COLONOSCOPY (10 YEARS) 03/06/2024Social 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Family HistoryMother 89 good health with some dementiaFather 83 Type II Diabetes, essential hypertension, arteriosclerotic heart diseaseOne sister living and in good health.Menarche 9 Menopause A0 Santos Thurman MD [address] [facility], [facility] [address], [place], [address], [facility] [employer] 11/20/2022 11:23:19 4 text/html Patient Name: Haritha Cunningham Of Service: Wednesday ( 05.21.2023 ): 1955 Age: 68 There has been approximately a 11 lb weight loss since 11/20/2022. This represents approximately a 5.4% change in weight. Weight change attributable to lifestyle changes. Vital Signs:Blood Pressure: Sitting Rt. Arm 122/80Pulse: Sitting 82 /min and RegularRespiratory Rate: 12Height 62 in or 1.6 mWeight 192 lb or 87.1 kgBMI 35.1Temperature: 97 F or 36.1 CPulse Oximetry: 93 % at rest on no oxygen Chief Complaint: Addressed in HPI Problems or conditions discussed in the HPI were the only ones reviewed during the encounter.Only social and family history addressed in the HPI were reviewed during this encounter. Attendant(s): NoneConstitutional and Systemic Symptoms:none Medication Reconciliation: from medication list. History of Present Illness #1. Type II Hypercholesterolaemia: Currently taking medication and tolerating well. No interval complaints of any muscle pain or arthralgia. No significant liver changes with medications. Last lipid panel: Fair control. Therapy reviewed regarding treatment of cholesterol management and include diet and Rosuvastatin. #2. Hx of hypothyroidism currently stable. Heat intolerance: no Fatigue: no Weight gain: yes Difficulty concentrating: no Muscle Symptoms: none Skin Texture: normal Skin Color: normal Currently taking levothyroxine. #3. Sleep Apnea: Type: CHUCK Current doing well. No significant daytime somnolence or problems performing daily chores. Using CPAP on nightly basis . Overall has shown sustained improvement.[place] Sleepiness ScaleSitting and ReadinWatching TV: 1Sitting Inactive in a Public Place: 0Passenger in a Car: 2Lying Down in Afternoon: 1Sitting and Talking to someone: 1Sitting quietly after lunch: 1In a car while stopped or drivinScore Interpretation: 0-7 No evidence of abnormally sleepy #4. Hx of obesity. Currently Class 2 Obesity BMI 35-39.99. Has tried numerous dietary support and supplements with no benefit. Instructed on the health consequences of the obese status particularly cancer - diabetes and heart disease. Discussed new modalities of weight loss including GLP-1 medications that are used to treat diabetes. Potential candidate for bariatric surgery: No. Wishes to be evaluated by Dietary: No and was offered to be evaluated and instructed by pr manager on weight loss diet. Active Medication ListOcuvite One DailySynthroid 0.137 MG (TABLET - ORAL) One Daily For Thyroid ReplacementOs-tru D 500 MG One BidRosuvastatin 10 MG TABLET One Hs For CholesterolOmega-3 1000 MG One Bid For CholesterolCpap OsaMultivitamin Daily Adverse Drug Reactions ReviewedDarvon Compound Unknown ReactionLipitor Bladder Incontinence Vaccination and Btbwfmzkfhva3785-55 Ntezunggk0181-01 Covid Booster Qlzzilj6433-70 Covid Lnmucri9572-89 Afwxwffgs7341-01 Prevnar 13 Surgical Dvahdhn9987-35 Bone Graph Right Clavicle Preventative Xxeblei8912/23/2022 ALBUMIN 4.2 G/DL N104/12/2021 MAMMOGRAM 31 DEXA SCAN03/06/2014 COLONOSCOPY (10 YEARS) 03/06/2024 Social 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 Family HistoryMother 89 good health with some dementiaFather 83 Type II Diabetes, essential hypertension, arteriosclerotic heart diseaseOne sister living and in good health.Menarche 9 Menopause A0 TEST RESULT RANGE UNITSLIPID PANEL, STANDARD Date: 3CHOLESTEROL, TOTAL 208 <200 MG/DLHDL CHOLESTEROL 62 > OR = 50 MG/DLTRIGLYCERIDES 107 <150 MG/DLLDL-CHOLESTEROL 125 MG/DL (CALC)COMPREHENSIVE METABOLIC PANEL Date: 12/23/2022SODIUM 136 135-146 MMOL/LPOTASSIUM 4.4 3.5-5.3 MMOL/LGLUCOSE 88 65-99 MG/DLUREA NITROGEN (BUN) 17 7-25 MG/DLCREATININE 0.96 0.50-1.05 MG/DLEGFR 64 > OR = 60 ML/MIN/1.82M7EBOSOIVZQ, TOTAL 0.5 0.2-1.2 MG/DLALKALINE PHOSPHATASE 90 37-153 U/LAST 21 10-35 U/LALT 15 6-29 U/LT4, FREE Date: 12/23/2022T4, FREE 1.2 0.8-1.8 NG/DLTSH Date: 12/23/2022TSH 0.24 0.40-4.50 MIU/L Santos Thurman MD [address] [facility], [facility] [address], [place], [address], [facility] [employer] 05/21/2023 11:46:59 4 text/html Patient Name: Haritha Cunningham Of Service: November ( 11.25.2023 ): 1955 Age: 68 There has been approximately a 6 lb weight gain since 05/21/2023. This represents approximately a 3.1% change in weight. Weight change attributable to lifestyle changes. Vital Signs:Blood Pressure: Sitting Rt. Arm 118/84Pulse: Sitting 81 /min and RegularRespiratory Rate: 14Height 62 in or 1.6 mWeight 198 lb or 89.8 kgBMI 36.2Temperature: 97.8 F or 36.6 CPulse Oximetry: 95 % at rest on no oxygen Chief Complaint: Addressed in HPI Problems or conditions discussed in the HPI were the only ones reviewed during the encounter.Only social and family history addressed in the HPI were reviewed during this encounter. Attendant(s): NoneConstitutional and Systemic Symptoms:none Medication Reconciliation: from medication list. History of Present Illness #1. Type II Hypercholesterolaemia: Currently taking medication and tolerating well. No interval complaints of any muscle pain or arthralgia. No significant liver changes with medications. Last lipid panel: fair control. Therapy reviewed regarding treatment of cholesterol management and include diet and Medication. #2. Hx of hypothyroidism currently stable. Heat intolerance: no Fatigue: no Weight gain: no Difficulty concentrating: no Muscle Symptoms: none Skin Texture: normal Skin Color: normal Currently taking synthroid. #3. Sleep Apnea: Type: CHUCK Current doing well. No significant daytime somnolence or problems performing daily chores. Using CPAP on nightly basis . Overall has shown considerable improvement.[place] Sleepiness ScaleSitting and ReadinWatching TV: 0Sitting Inactive in a Public Place: 1Passenger in a Car: 1Lying Down in Afternoon: 0Sitting and Talking to someone: 1Sitting quietly after lunch: 0In a car while stopped or drivinScore Interpretation: 0-7 No evidence of abnormally sleepy #4. Hx of obesity. Currently Class 2 Obesity BMI 35-39.99. Has tried numerous dietary support and supplements with no benefit. Instructed on the health consequences of the obese status particularly cancer - diabetes and heart disease. Discussed other modalities of weight loss no . Potential candidate for bariatric surgery: No. Wishes to be evaluated by Dietary: No and was offered to be evaluated and instructed by pr manager on weight loss diet. Active Medication ListOcuvite One DailySynthroid 0.137 MG (TABLET - ORAL) One Daily For Thyroid ReplacementOs-tru D 500 MG One BidRosuvastatin 10 MG TABLET One Hs For CholesterolOmega-3 1000 MG One Bid For CholesterolCpap OsaMultivitamin Daily Adverse Drug Reactions ReviewedDarvon Compound Unknown ReactionLipitor Bladder Incontinence Vaccination and Buhcurvqnetz3948-87 Jegpmoeng3350-78 Covid Booster Vomaxeb9681-45 Covid Gfxrqma6688-22 Vkgfhblby0351-38 Prevnar 13 Gc Surgical Ziinmwz7363-63 Bone Graph Right Clavicle Preventative Testing( ) 06/28/2023 Mammogram 06/27/2025( ) 05/24/2023 Albumin 4.1 G/DL N(X) 12/18/2020 DEXA Scan 12/18/2022( ) 03/06/2014 Colonoscopy (10 Years) 03/06/2024 Social 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 Family HistoryMother 89 good health with some dementiaFather 83 Type II Diabetes, essential hypertension, arteriosclerotic heart diseaseOne sister living and in good health.Menarche 9 Menopause A0 TEST RESULT RANGE UNITSLIPID PANEL, STANDARD Date: 05/24/2023HOLESTEROL, TOTAL 164 <200 MG/DLHDL CHOLESTEROL 65 > OR = 50 MG/DLTRIGLYCERIDES 77 <150 MG/DLLDL-CHOLESTEROL 83 MG/DL (CALC)COMPREHENSIVE METABOLIC PANEL Date: 05/24/2023SODIUM 139 135-146 MMOL/LPOTASSIUM 4.2 3.5-5.3 MMOL/LGLUCOSE 90 65-99 MG/DLUREA NITROGEN (BUN) 21 7-25 MG/DLCREATININE 0.90 0.60-1.00 MG/DLEGFR 69 > OR = 60 ML/MIN/1.20H6IRULJFKXQ, TOTAL 0.4 0.2-1.2 MG/DLAST 20 10-35 U/LALKALINE PHOSPHATASE 84 37-153 U/LALT 14 6-29 U/LT4, FREE Date: 05/24/2023T4, FREE 1.3 0.8-1.8 NG/DLTSH Date: 05/24/2023TSH 0.09 0.40-4.50 MIU/LVITAMIN D,25-OH,TOTAL,IA Date: 05/24/2023VITAMIN D,25-OH,TOTAL,IA 47 30-100 NG/MLCBC (INCLUDES DIFF/PLT) Date: 05/24/2023WHITE BLOOD CELL COUNT 7.5 3.8-10.8 THOUSAND/ULHEMOGLOBIN 13.9 11.7-15.5 G/DLHEMATOCRIT 43.3 35.0-45.0 %PLATELET COUNT 249 140-400 THOUSAND/UL Santos Thurman MD [address] [facility], [facility] [address], [place], [address], [facility] 11/25/2023 14:19:56 5 text/html Patient Name: Haritha Cunningham Of Service: May ( 05.25.2024 ): 1955 Age: 69 There has been approximately a 15 lb weight gain since 11/25/2023. This represents approximately a 7.6% change in weight. Weight change attributable to lifestyle changes. Vital Signs:Blood Pressure: Sitting Rt. Arm 120/68Pulse: Sitting 72 /min and RegularRespiratory Rate: 16Height 62 in or 1.6 mWeight 213 lb or 96.6 kgBMI 39.0Temperature: 97 F or 36.1 CPulse Oximetry: 95 % at rest on no oxygen Chief Complaint: Addressed in HPI Problems or conditions discussed in the HPI were the only ones reviewed during the encounter.Only social and family history addressed in the HPI were reviewed during this encounter. Attendant(s): NoneConstitutional and Systemic Symptoms:none Medication Reconciliation: from medication list. History of Present Illness #1. Type II Hypercholesterolaemia: Currently taking medication and tolerating well. No interval complaints of any muscle pain or arthralgia. No significant liver changes with medications. Last lipid panel: fair control. Therapy reviewed regarding treatment of cholesterol management and include diet and Rosuvastatin. #2. Hx of hypothyroidism currently stable. Heat intolerance: no Fatigue: no Weight gain: no Difficulty concentrating: no Muscle Symptoms: none Skin Texture: normal Skin Color: normal Currently taking synthroid. #3. Sleep Apnea: Type: CHUCK Current doing well. No significant daytime somnolence or problems performing daily chores. Using CPAP on nightly basis . Overall has shown considerable improvement.[place] Sleepiness ScaleSitting and ReadinWatching TV: 1Sitting Inactive in a Public Place: 2Passenger in a Car: 1Lying Down in Afternoon: 1Sitting and Talking to someone: 0Sitting quietly after lunch: 1In a car while stopped or drivinScore Interpretation: 0-7 No evidence of abnormally sleepy #4. Complaining of midthoracic back pain of rather sudden onset over the last several weeks. No radiation around the back or in a radicular pattern. Is aggravated by coughing, sneezing bending stooping etc.. A history of some mild osteoporosis. Need to rule out the possibility of mild compression fracture. Obtain radiographic studies of thoracic spine for further evaluation: #5. Hx of obesity. Currently Class 2 Obesity BMI 35-39.99. Has tried numerous dietary support and supplements with no benefit. Instructed on the health consequences of the obese status particularly cancer - diabetes and heart disease. Discussed other modalities of weight loss no . Potential candidate for bariatric surgery: No. Wishes to be evaluated by Dietary: No and was offered to be evaluated and instructed by pr manager on weight loss diet. Active Medication ListOcuvite One DailySynthroid 0.137 MG (TABLET - ORAL) One Daily For Thyroid ReplacementOs-tru D 500 MG One BidRosuvastatin 10 MG TABLET One Hs For CholesterolOmega-3 1000 MG One Bid For CholesterolCpap OsaMultivitamin Daily Adverse Drug Reactions ReviewedDarvon Compound Unknown ReactionLipitor Bladder Incontinence Vaccination and Immunization( ) 2023- INFLUENZA( ) 2018-05 PREVNAR 13 GC( ) 2019-10 PNEUMOVAX( ) 2020-05 COVID MODERNA(X) 2021-01 COVID BOOSTER MODERNA Surgical [id number] Bone Graph Right Clavicle Preventative Testing( ) 04/10/2024 Optometry( ) 11/25/2023 Albumin 4.1 G/DL N( ) 06/28/2023 Mammogram 06/27/2025(X) 12/18/2020 DEXA Scan 12/18/2022(X) 03/06/2014 Colonoscopy (10 Years) 03/06/2024 Social 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 Family HistoryMother 89 good health with some dementiaFather 83 Type II Diabetes, essential hypertension, arteriosclerotic heart diseaseOne sister living and in good health.Menarche 9 Menopause A0 TEST RESULT RANGE UNITSCBC (INCLUDES DIFF/PLT) Date: 11/25/2023WHITE BLOOD CELL COUNT 8.2 3.8-10.8 THOUSAND/ULHEMOGLOBIN 13.9 11.7-15.5 G/DLHEMATOCRIT 43.9 35.0-45.0 %PLATELET COUNT 271 140-400 THOUSAND/ULCOMPREHENSIVE METABOLIC PANEL Date: 11/25/2023SODIUM 134 135-146 MMOL/LPOTASSIUM 4.6 3.5-5.3 MMOL/LGLUCOSE 91 65-99 MG/DLUREA NITROGEN (BUN) 14 7-25 MG/DLCREATININE 1.00 0.60-1.00 MG/DLEGFR 61 > OR = 60 ML/MIN/1.36K6HFRNEPY 9.8 8.6-10.4 MG/DLBILIRUBIN, TOTAL 0.7 0.2-1.2 MG/DLALKALINE PHOSPHATASE 83 37-153 U/LAST 20 10-35 U/LALT 14 6-29 U/LLIPID PANEL, STANDARD Date: 4CHOLESTEROL, TOTAL 181 <200 MG/DLHDL CHOLESTEROL 64 > OR = 50 MG/DLTRIGLYCERIDES 85 <150 MG/DLLDL-CHOLESTEROL 99 MG/DL (CALC)T4, FREE Date: 11/25/2023T4, FREE 1.5 0.8-1.8 NG/DLTSH Date: 11/25/2023TSH 0.18 0.40-4.50 MIU/L Santos Thurman MD [address] [facility], [facility] [address], [place], [address], [place] [employer] [facility] 05/25/2024 11:14:12 OBGyn Episode No OBEpisode recorded.
--- OUTSIDE RECORDS SUMMARY | 2024-06-02 15:42 | XMS_ITS | Continuity of Care Document ---
Author Organization [facility] Address [address] [place] [address] Phone Care Team Providers Care Nutrition Coordinator Name Role Phone [facility] Unavailable [...] Diagnoses Date Provider Providers Copied on Encounter [facility], [address] [place] [address] [address], [place], [place], [id number], [place] tel:[phone] [facility] [place] [facility] [place] No Information 0 [facility] . [address] [facility], [facility] [address], [place], [id number], [place]. tel:[phone] Referring Provider: Simone Webster, [address] [place] [address] [address], [place], [address]. tel:[phone] sulting Provider: Marco Finney, [address] [place] [address], [place], [address]. tel:[phone] [facility], [address], [place], [place], [id number], [place] tel:[phone] [facility] No Information Dec-2 9-200 9 [place] OD Simone. [address] [facility] , [address], [place], [address], [place]. tel:[phone] [facility], [address], [place], [place], [id number], tel:[phone] [facility] [place] [facility] [place] No Information Dec-2 4-200 8 [place] OD Simone. [address] [facility] , [address], [place], [place], [facility] [place], [place]. tel:[phone] [facility], [address], [place], [place], [address], tel:[phone] [facility] [place] [facility] [place] No Information Feb-1 9-200 7 [place] OD Simone. [facility] [facility] , [address], [place], [address], [place]. tel:[phone] Family History Family Member Type Diagnosis Age At Onset No Information Payers Payer name Insurance type Covered green party ID Authoriza tion(s) No Information Social History [...]
== END 2024-06-02 15:38 | disposition home or self-care (01) ==
PROVIDERS: PCP Internal Medicine; Visit Provider Internal Medicine
DX: M54.6 Pain in thoracic spine (principal)
CPT/HCPCS: 72072

== ENCOUNTER 2024-11-15 09:25 | Outpatient (CLI) | payer MEDICARE, SELFPAY ==
--- OUTSIDE RECORDS SUMMARY | 2009-09-26 19:00 | XMS_ITS | Continuity of Care Document ---
Author Organization [facility] Address [address] [place] [address] Phone Care Team Providers Care Vp Production Name Role Phone [facility] Unavailable Unavail able Marco Finney Unavailable Unavailable Procedures Procedure Date Progressive Lens, Plastic Frames Deluxe Tint Photochromatic, Plastic Anti-reflective Coating Medical Tax Eye Exam & Treatment Refraction Eye Exam & Treatment Eye Exam & Treatment Refraction Advance Directives Directive Yes / No Effective Date File Name No Information Encounters Encounter Description Practice Location Reason(s) For Visit Diagnoses Date Provider Providers Copied on Encounter [facility], [address] [place] [address] [address], [place], [place], [id number], [place] tel:[phone] [facility] No Information 0 [facility] . [address] [facility], [facility] [address], [place], [address], [place]. tel:[phone] Referring Provider: Simone Webster, [address] [place] [address] [address], [place], [address]. tel:[phone] sulting Provider: Marco Finney, [address] [place] [address], [place], [address]. tel:[phone] [facility], [address], [place], [place], [address], [place] tel:[phone] SEC [facility] No Information Dec-2 9-200 9 [place] OD Simone. [address] [facility] , [address], [place], [address], [place]. tel:[phone] [facility] Eye [facility], [address], [place], [place], [address], tel:[phone] [facility] [place] No Information Dec-2 4-200 8 [place] OD Simone. [address] [facility] , [address], [place], [place], [facility], [place]. tel:[phone] [facility] Eye [facility], [address], [place], [place], [address], tel:[phone] [facility] No Information Feb-1 9-200 7 [place] OD Simone. [facility] [facility] , [address], [place], [address], [place]. tel:[phone] Family History Family Member Type Diagnosis Age At Onset No Information Payers Payer name Insurance type Covered democrat ID Authoriza tion(s) No Information Social History Type Description Quantity Date Captured Comments Sex Female Smoking Status No Information Chief Complaint And Reason For Visit No Information Reason For Referral Reason For Referral No Information History Of Present Illness Encounter Date Complaint History Of Prese nt Illness No Information Functional Status Date Functional Assessmen t No Information Instructions Date Instruction Additional Infor mation No Information Assessments Type Assessment Date No Information Patient Care Teams Name Effective Dates (start - stop) Status Members No Information
--- NOTE | ~2024-11-15 | MM_ITS ---
EXAMINATION: MM screening [facility] BI w cora HISTORY: Screening TECHNIQUE: Craniocaudal and mediolateral oblique 3-D tomosynthesis images were obtained and synthetic 2-D images were generated. CAD analysis was submitted and interpreted. COMPARISON: Mammogram 06/28/2023 and 02/10/2022 BREAST PARENCHYMAL COMPOSITION: Not Dense: The breasts are almost entirely fatty. FINDINGS: There is no evidence of suspicious mass, calcification, or architectural distortion to suggest malignancy in either breast. [There has been no significant interval change. IMPRESSION: 1. No mammographic evidence of malignancy. Recommend routine screening mammography in one year. BI-RADS Category 1: Negative Reviewed, dictated, and finalized at Location A. Reviewed, dictated and finalized at location Q. IMPRESSION: 1. No mammographic evidence of malignancy. Recommend routine screening mammogra phy in one year. BI-RADS Category 1: Negative
--- OUTSIDE RECORDS SUMMARY | 2024-11-15 10:03 | XMS_ITS | Clinical Summary ---
Author Organization [facility] Address [address] [facility] [place] [address] Phone Care Team Providers Care Build Master Name Role Phone Santos Thurman MD Primary Care Provider [phone] Maria T Michel APRN, [employer] [place] [place] Unavailable Allergies No known active allergies Medications LEVOTHYROXINE SODIUM PO Take 100 mcg by mouth. Active Multiple Vitamin (MULTI-VITAMIN PO) Take by mouth. Activ e Calcium Carb-Cholecalc iferol (CALCIUM + D3) 600-200 MG-UNIT Tablet Take by mouth. Active Cholecalcifero l (VITAMIN D3) 2000 UNIT Capsule Take by mouth. Activ e [place]-3 Fatty Acids (OMEGA 3 PO) Take 500 mg by mouth. Active BIOTIN FORTE PO Take 5,000 mg by mouth. Active Cranberry-Farrah min C-Vitamin E 4200-20-3 MG-MG-UNIT Capsule Take by mouth. Activ e rosuvastatin (CRESTOR) 5 MG Tablet Take 5 mg by mouth daily. Unknown dosage Active pravastatin (PRAVACHOL) 40 MG Tablet Take 40 mg by mouth daily. 11/02/19 25 Discontinu ed(Med List Clean Up) albuterol (ProAir HFA) 108 (90 Base) MCG/ACT Aerosol Solution take 2 Puffs by inhalation every 4 hours as needed for Wheezing. 1 Inhaler 5 0 11/02/19 25 Discontinu ed(Med List Clean Up) Active Problems Problem Noted Date Diagnosed Date Non morbid obesity 12/27/2017 CHUCK on CPAP 11/21/2015 Acquired hypothyroidism 11/21/2015 Encounters Date Type Department Care Team Description 11/01/2024 8:30 AM CDT Office Visit [facility] - [place] [address] [facility] [address] [place] [address] Maria T Michel APRN, AUDRA CHUCK on CPAP (Primary Dx) Discharge Disposition: Discharged to home or Selfcare 11/01/2024 Travel from Last 3 Months Immunizations Immunization Administration Dates Next Due Covid-19, [...] Sign Reading Time Taken Comments Blood Pressure 132/70 11/01/2024 8:32 AM CDT Pulse 74 11/01/2024 8:32 AM CDT Temperature 37.1 C (98.7 F) 11/01/2024 8:32 AM CDT Respiratory Rate 16 11/01/2024 8:32 AM CDT Oxygen Saturation 92% 11/01/2024 8:32 AM CDT Inhaled Oxygen Concentration - - Weight 87.7 kg (193 lb 6.4 oz) 11/01/2024 8:32 A M CDT Height 160 cm (5' 3) 11/01/2024 8:32 AM CDT Body Mass Index 34.26 11/01/2024 8:32 AM CDT Plan of Treatment Upcoming Encounters Date Type Department Care Team (Late st Contact Info) Description 10/31/2025 9:30 AM CDT Office Visit [facility] - [place] [address] [place] [address] Maria T Michel, HEDDLE MACHINE OPERATOR, [facility]INA [facility] [place] [facility] [address] [facility] [address] [place] [address] Health Maintenance Due Date Last Done Comments DEXA Bone Density 1955 Hepatitis C Virus (HCV) Screening 1955 Mammogram 1955 TdaP Immunization 1955 Cologuard 1998 Colonoscopy 1998 Colorectal Cancer Screening 1998 Immunochemical Fecal Occult Blood 1998 Zoster Immunization (1 of 2) 2003 Respiratory Syncytial Virus (RSV) Immunization (Adult) (1 - Risk 60-74 years 1-dose series) 2013 Influenza Immunization (#1) 11/13/202412/13, 01/19/2023, 12/19/2021, Additional history exists SARS-COV-2 Immunization ( season) 2024 12/23/2023, 01/21/2023, 03/03/2022, Additional history exists Pneumococcal Immunization (50+ years) Completed 10/27/2019, 06/10/2018 Pneumococcal Immunization Combined Discontinued 10/27/2019, 06/10/2018 Hepatitis B Immunization Aged Out No longer eligible based on patient's age to complete this topic Human Papillomavirus (HPV) Immunization Aged Out No longer eligible based on patient's age to complete this topic Meningococcal Immunization (ACWY) Aged Out No longer eligible based on patient's age to complete this topic Rotavirus Immunization Aged Out No lo nger eligible based on patient's age to complete this topic Insurance MEDICARE C AETNA Care Teams Build Master Relationship Specialty Start Date End Date Santos Thurman MD [address] [facility] [address] [place] [address] PCP - General Internal Medicine 08/16/15 Maria T Michel APRN, KAIAWHINA KURA [place]ORI [address] [address] Nurse Practitioner Advanced Practice Nurse 08/26/22
--- OUTSIDE RECORDS SUMMARY | 2024-11-15 10:03 | XMS_ITS | Clinical Summary ---
Author Organization [facility] Address [facility] [place] [address] Care Team Providers Care Hot Air Furnace Installer And Repairer Name Role Phone Marta Orosco MD Primary Care Provider + Social History Tobacco Use Types Packs/Day Years Used Date Smoking Tobacco: Never Assessed Comments Unknown Sex and Gender Information Value Date Recorded Sex Assigned at Not on file Legal Sex Female 2:31 PM CDT Gender Identity Not on file Sexual Orientation Not on file Plan of Treatment Upcoming Encounters Date Type Department Care Team (Late st Contact Info) Description 02/23/2025 10:30 AM CLOTHES WRINGER Office Visit [facility] - [place] [address] [place] [address] [phone] Marta Orosco MD [address] [place] [address] [phone] Health Maintenance Due Date Last Done Comments Colorectal Cancer Screening Colonoscopy (10 Years) 1953 Hepatitis C 1971 DTaP, Tdap and Td Vaccines ( 1 - Tdap) 02/19/1972 Mammogram Screening 1993 Pneumococcal Vaccine: 50+ Ye ars (1 of 1 - PCV) 2003 Zoster Vaccines (1 of 2) 2003 Annual Medicare Wellness Visit 2018 Dexa Scan (General) 2018 COVID-19 Vaccine ( - 2023-2 5 season) 2023 RSV Immunization or 60+ Years (1 - 1-dose 75+ series) 02/19/2028 Meningococcal B Vaccine Aged Out No l onger eligible based on patient's age to complete this topic Meningococcal Vaccine Aged Out No brian julio eligible based on patient's age to complete this topic RSV Immunizations Under 20 Months Aged Out No longer eligible based on patient's age to complete this topic Insurance AETNA Care Teams Hot Air Furnace Installer And Repairer Relationship Specialty Start Date End Date Marta Orosco MD [address] [place] [address] PCP - General FAMILY PRACTICE 11/08/24
== END 2024-11-15 09:26 | disposition home or self-care (01) ==
LOC: ANHFOHIMG 09:28
PROVIDERS: PCP Internal Medicine; Visit Provider Internal Medicine
DX: Z12.31 Encounter for screening mammogram for malignant neoplasm of breast (principal)
CPT/HCPCS: 77063; 77067